=== PATIENT | female | born 1995 | race Caucasian/White ===

== ENCOUNTER → 2018-03-28 18:13 | Outpatient (CLI) | payer OTHER, MEDICAID, SELFPAY ==
[2018-03-28 20:10] LABS: Urine N gonorrhoeae NOT DETECTED
[2018-03-28 20:16] LABS: Urine Chlamydia NOT DETECTED
== END ==
PROVIDERS: Family Provider Family Medicine; PCP Family Medicine; Visit Provider Physician Assistant
DX: R10.2 Pelvic and perineal pain (principal)
CPT/HCPCS: 87210; 87491; 87591

== ENCOUNTER → 2018-04-11 21:09 | Outpatient (CLI) | payer OTHER, MEDICAID, SELFPAY | PROVIDERS: Family Provider Family Medicine; PCP Family Medicine; Visit Provider Physician Assistant | DX: N89.8 Other specified noninflammatory disorders of vagina (principal) | CPT/HCPCS: 87210 ==

== ENCOUNTER 2018-06-14 13:00 | Outpatient (RCR) | payer OTHER, MEDICAID, SELFPAY ==
--- NOTE | 2018-05-24 16:05 | PT.OTN ---
Current Diagnoses Other chronic pain (05/24/18) Lumbago with sciatica, right side (05/24/18) Lumbago with sciatica, left side (05/24/18) Physical Therapy Treatment Note PT-OP-A Visit Information Start: 05/24/18 16:06 Freq: Status: Active Protocol: Document 05/24/18 16:06 EA (Rec: 05/24/18 16:54 EA [id number]) Out-Patient Physical Therapy Visit Information Visit Information Visit Type Initial Evaluation Visit Start Time 15:15 Visit Stop Time 15:55 Total Visit Minutes 40 Visit Number 1 Evaluation Information Evaluation Date 05/24/18 PT-OP-B Current Condition Start: 05/24/18 16:06 Freq: Status: Active Protocol: Document 05/24/18 16:06 EA (Rec: 05/24/18 16:54 EA [id number]) Current Condition History of Current Condition Onset Date More than 5 years Current Complaints Localized low back pain History of Current Condition Present condition has been chornic for more than 5 years with no significant past medical history or injury. Pt had multiple treatment from chiropractor to physical therapist 3 years ago with temporarily relief. Pt reports MRI performed 4 years ago with result of disc bulge with unrecalled lumbar level. Pt is currently taking different pain medication with temporary relief; she reports that PT 3 years ago helps her mobility but not the pain. She denies any constipation or barcterial infection. Prior Treatments and Tests Chiropractor, PT, MRI performef more than 3 years ago. Future Testing and Treatments Planned None identified Treatment Goals Patient/Caregiver Goals Patient would like to increased core strengthe; states she believes if her core strength improves it will improve her back. Prior Functional Status Baseline Function- ADL's Independent Baseline Function- Mobility Independent Baseline Function- Gait Indep but requires frequent rest with long distance Baseline Function- Work/School Patient did comment about previous work Baseline Function- Recreation/Hobbies None at this time Current Functional Impairments (Reported) Functional Limitations- ADL's Independent, with difficulty in al ADL that requires standing and lifting more than 15 mins Functional Limitations- Mobility/Gait Indep that requires frequent rests with long distance mobility Functional Limitations- Work/School Not currently working Functional Limitations- Recreation/ Unable at this time. Hobbies PT-OP-C Subjective Start: 05/24/18 16:06 Freq: Status: Active Protocol: Document 05/24/18 16:06 EA (Rec: 05/24/18 16:54 EA [id number]) OP-PT Subjective Patient Comments Patient Comments Pt would like to increase core strength and low back stability. Patient Reported Progress Same OP-PT Pain Assessment Location Bilateral Lower Back Pain Location Details Par[place]umbars Intensity 5 Scale Used Numeric (1 - 10) Description Tender Tightness Frequency Intermittent Pain Aggravating Factors Position Changing Position ADL's Activity Exercise Standing Sitting Walking Lifting Pain Alleviating Factors Heat Home Pain Medication Use Pain Medications Used Yes PT-OP-G Mobility & Gait Start: 05/24/18 16:06 Freq: Status: Active Protocol: Document 05/24/18 16:06 EA (Rec: 05/24/18 16:54 EA [id number]) OP Gait Assessment Gait Gait Assistance Required: Independent Distance (Feet) 100 Able to Maintain Weight Bearing Status Yes During Gait Assistive Devices Assistive Device None Gait Deviations General Gait Pattern Within Normal Limits Comments Gait Comments No gait deviation noted PT-OP-J Posture/Palpation/Skin Start: 05/24/18 16:06 Freq: Status: Active Protocol: Document 05/24/18 16:06 EA (Rec: 05/24/18 16:54 EA [id number]) Posture Evaluation Position Standing Evaluation View post/lat Head/C-Spine Posture Neutral Position Pelvis Posture (R) Iliac Crest Superior Hip Posture (L) Externally Rotated Palpation Assessment Location One Palpation Location Paralumbars, itespinous ligament, QL Palpation Findings Soft Tissue Tightness Tenderness PT-OP-K Range of Motion Start: 05/24/18 16:06 Freq: Status: Active Protocol: Document 05/24/18 16:06 EA (Rec: 05/24/18 16:54 EA [id number]) Lumbar Spine Range of Motion Lumbar Spine Active Percentage Testing Position Standing Flexion 55 Extension 20 Rotation Left 45 Rotation Right 45 Lateral Flexion Left 30 Lateral Flexion Right 30 ROM Limitations Soft Tissue Tightness Pain PT-OP-L Special Tests Start: 05/24/18 16:06 Freq: Status: Active Protocol: Document 05/24/18 16:06 EA (Rec: 05/24/18 16:54 EA [id number]) Special Tests Lumbar Spine Special Tests Other- 1 Test Results - Gaenslens test Vertical Spine Loading Test Results - Prone Instability Test Test Results + Straight Leg Raise Test Results - PT-OP-Q Treatments Start: 05/24/18 16:06 Freq: Status: Active Protocol: Document 05/24/18 16:06 EA (Rec: 05/24/18 16:54 EA [id number]) Therapeutic Exercises Supine Exercises 3 Supine Exercise Name SKTC Side bilateral Reps/Minutes x15SH x 2 reps 2 Supine Exercise Name Wall squat with PPT Side bilateral Reps/Minutes x 10 reps 1 Supine Exercise Name PPT Side bilateral Reps/Minutes x 5SH x 5 reps Self-Care/Home Management Treatment Education Patient Education Body Mechanics Home Exercise Program Pain Management Posture PT-OP-T Assessment and Plan Start: 05/24/18 16:06 Freq: Status: Active Protocol: Document 05/24/18 16:06 EA (Rec: 05/24/18 16:54 EA [id number]) Physical Therapy Assessment Rehab Potential Rehabilitation Potential Good Evaluation Complexity Number of Personal Factors/Comorbidities 1-2 Number of Body Systems Impaired 1-2 Clinical Presentation at Evaluation Evolving Impairments Impairments Activity Tolerance Pain Posture ROM Soft Tissue Mobility Goals Four Impairment Impaired ambulation tolerance Press Worker Helper Goal (LTG) Patient will ambulate more than 15 mins with increase of low back symptoms LTG Duration 4 wks Three Impairment No HEP in place Press Worker Helper Goal (LTG) Patient will be independent in all HEP with safety. LTG Duration 4 wks Two Impairment Impaired lifting mechanics and ability Press Worker Helper Goal (LTG) Patient will demonstrate safe lifting mechanics with ability to lift more than 15 lbs LTG Duration 4 wks One Impairment Impaired standing tolerance Press Worker Helper Goal (LTG) Patient will stand more than 30 mins without increase of back symptoms LTG Duration 4 wks Assessment Summary Assessment Pleasant 22 y/o F patient with a referring diagnosis of low back pain. Today patient exhibits signs and symptoms consistent with lumbar soft tissue strain with no radiculopathy. Lumbar ROM reveals extension is limited more than side bending than bending forward. Posture reveals slight increased of lumbar lordosis with no ability to PPT. MMT to lumbar area reveals weak abdominal, oblique, and side flexors. Special test reveals positive to right SI joint dysfunction, and posterior quadrant test with no radiculo lesa. Due to above body dysfunction, patient is limited to standing activities that is supposed to be normal at her age. Patient will benefit with skilled PT to address the aforementioned issues. Physical Therapy Plan Frequency and Duration Frequency of Treatment 2x/Week Duration of Treatment 8 wks Plan of Care Start Date 05/24/18 Plan of Care End Date 07/19/18 Therapeutic Interventions Therapeutic Interventions Home Exercise Program Joint Mobilizations Manual Therapy Patient/Caregiver Education Self-Care/Home Management Soft Tissue Mobilization Taping Therapeutic Exercises Modalities Cold Pack/Ice Massage Electric Stimulation Hot Packs Traction- Mechanical Ultrasound Next Visit Focus/Plan Next Note Type Treatment Note Next Visit Plan Provide HEP images; therex to core, hamstring stretch, modalities for pain
--- NOTE | 2018-05-24 16:10 | PT.OIE ---
Current Diagnoses Other chronic pain (05/24/18) Lumbago with sciatica, right side (05/24/18) Lumbago with sciatica, left side (05/24/18) Past Medical History (Last Reviewed 11/24/17 @ 13:27 by Fidel Valero MD) ADHD (attention deficit hyperactivity disorder) (Chronic 2003) Restless leg syndrome (Chronic 2007) Chronic back pain (Chronic) Uncomplicated opioid dependence (Chronic) Onychomycosis (Chronic 10/31/15) Gluten enteropathy (Chronic) Herpes (Chronic) Kidney stones (Resolved 2013) Pituitary adenoma (Resolved) Past Surgical History (Last Reviewed 10/28/17 @ 16:12 by Fidel Valero MD) Status post cholecystectomy History of repair of hiatal hernia Provider Visit Care Team Role Provider Type Fidel Valero MD Attending Provider Non-Staff Family Provider Primary Care Provider Specialty: Family Practice Address: [address] [place] [address], [facility] [address], [place], [address] Email: Physical Therapy Initial Evaluation PT-OP-A Visit Information Start: 05/24/18 16:06 Freq: Status: Active Protocol: Document 05/24/18 16:06 EA (Rec: 05/24/18 16:54 EA [id number]) Out-Patient Physical Therapy Visit Information Visit Information Visit Type Initial Evaluation Visit Start Time 15:15 Visit Stop Time 15:55 Total Visit Minutes 40 Visit Number 1 Evaluation Information Evaluation Date 05/24/18 PT-OP-B Current Condition Start: 05/24/18 16:06 Freq: Status: Active Protocol: Document 05/24/18 16:06 EA (Rec: 05/24/18 16:54 EA [id number]) Current Condition History of Current Condition Onset Date More than 5 years Current Complaints Localized low back pain History of Current Condition Present condition has been chronic for more than 5 years with no significant past medical history or injury. Pt had multiple treatment from chiropractor to physical therapist 3 years ago with temporarily relief. Pt reports MRI performed 4 years ago with result of disc bulge with un recalled lumbar level. Pt is currently taking different pain medication with temporary relief; she reports that PT 3 years ago helps her mobility but not the pain. She denies any constipation or bacterial infection. Prior Treatments and Tests Chiropractor, PT, MRI performef more than 3 years ago. Future Testing and Treatments Planned None identified Treatment Goals Patient/Caregiver Goals Patient would like to increased core strengthe; states she believes if her core strength improves it will improve her back. Prior Functional Status Baseline Function- ADL's Independent Baseline Function- Mobility Independent Baseline Function- Gait Indep but requires frequent rest with long distance Baseline Function- Work/School Patient did comment about previous work Baseline Function- Recreation/Hobbies None at this time Current Functional Impairments (Reported) Functional Limitations- ADL's Independent, with difficulty in all ADL that requires standing and lifting more than 15 mins Functional Limitations- Mobility/Gait Indep that requires frequent rests with long distance mobility Functional Limitations- Work/School Not currently working Functional Limitations- Recreation/ Unable at this time. Hobbies PT-OP-C Subjective Start: 05/24/18 16:06 Freq: Status: Active Protocol: Document 05/24/18 16:06 EA (Rec: 05/24/18 16:54 EA [id number]) OP-PT Subjective Patient Comments Patient Comments Pt would like to increase core strength and low back stability. Patient Reported Progress Same OP-PT Pain Assessment Location Bilateral Lower Back Pain Location Details [place]umbars Intensity 5 Scale Used Numeric (1 - 10) Description Tender Tightness Frequency Intermittent Pain Aggravating Factors Position Changing Position ADL's Activity Exercise Standing Sitting Walking Lifting Pain Alleviating Factors Heat Home Pain Medication Use Pain Medications Used Yes PT-OP-G Mobility & Gait Start: 05/24/18 16:06 Freq: Status: Active Protocol: Document 05/24/18 16:06 EA (Rec: 05/24/18 16:54 EA [id number]) OP Gait Assessment Gait Gait Assistance Required: Independent Distance (Feet) 100 Able to Maintain Weight Bearing Status Yes During Gait Assistive Devices Assistive Device None Gait Deviations General Gait Pattern Within Normal Limits Comments Gait Comments No gait deviation noted PT-OP-J Posture/Palpation/Skin Start: 05/24/18 16:06 Freq: Status: Active Protocol: Document 05/24/18 16:06 EA (Rec: 05/24/18 16:54 EA [id number]) Posture Evaluation Position Standing Evaluation View post/lat Head/C-Spine Posture Neutral Position Pelvis Posture (R) Iliac Crest Superior Hip Posture (L) Externally Rotated Palpation Assessment Location One Palpation Location Paralumbars, itespinous ligament, QL Palpation Findings Soft Tissue Tightness Tenderness PT-OP-K Range of Motion Start: 05/24/18 16:06 Freq: Status: Active Protocol: Document 05/24/18 16:06 EA (Rec: 05/24/18 16:54 EA [id number]) Lumbar Spine Range of Motion Lumbar Spine Active Percentage Testing Position Standing Flexion 55 Extension 20 Rotation Left 45 Rotation Right 45 Lateral Flexion Left 30 Lateral Flexion Right 30 ROM Limitations Soft Tissue Tightness Pain PT-OP-L Special Tests Start: 05/24/18 16:06 Freq: Status: Active Protocol: Document 05/24/18 16:06 EA (Rec: 05/24/18 16:54 EA [id number]) Special Tests Lumbar Spine Special Tests Other- 1 Test Results - Gaenslens test Vertical Spine Loading Test Results - Prone Instability Test Test Results + Straight Leg Raise Test Results - PT-OP-Q Treatments Start: 05/24/18 16:06 Freq: Status: Active Protocol: Document 05/24/18 16:06 EA (Rec: 05/24/18 16:54 EA [id number]) Therapeutic Exercises Supine Exercises 3 Supine Exercise Name SKTC Side bilateral Reps/Minutes x15SH x 2 reps 2 Supine Exercise Name Wall squat with PPT Side bilateral Reps/Minutes x 10 reps 1 Supine Exercise Name PPT Side bilateral Reps/Minutes x 5SH x 5 reps Self-Care/Home Management Treatment Education Patient Education Body Mechanics Home Exercise Program Pain Management Posture PT-OP-T Assessment and Plan Start: 05/24/18 16:06 Freq: Status: Active Protocol: Document 05/24/18 16:06 EA (Rec: 05/24/18 16:54 EA [id number]) Physical Therapy Assessment Rehab Potential Rehabilitation Potential Good Evaluation Complexity Number of Personal Factors/Comorbidities 1-2 Number of Body Systems Impaired 1-2 Clinical Presentation at Evaluation Evolving Impairments Impairments Activity Tolerance Pain Posture ROM Soft Tissue Mobility Goals Four Impairment Impaired ambulation tolerance Assisted Goal (LTG) Patient will ambulate more than 15 mins with increase of low back symptoms LTG Duration 4 wks Three Impairment No HEP in place Tailor Helper Goal (LTG) Patient will be independent in all HEP with safety. LTG Duration 4 wks Two Impairment Impaired lifting mechanics and ability Tailor Helper Goal (LTG) Patient will demonstrate safe lifting mechanics with ability to lift more than 15 lbs LTG Duration 4 wks One Impairment Impaired standing tolerance Assisted Goal (LTG) Patient will stand more than 30 mins without increase of back symptoms LTG Duration 4 wks Assessment Summary Assessment Pleasant 22 y/o F patient with a referring diagnosis of low back pain. Today patient exhibits signs and symptoms consistent with lumbar soft tissue strain with no radiculopathy. Lumbar ROM reveals extension is limited more than side bending than bending forward. Posture reveals slight increased of lumbar lordosis with no ability to PPT. MMT to lumbar area reveals weak abdominal, oblique, and side flexors. Special test reveals positive to right SI joint dysfunction, and posterior quadrant test with no radiculopathy. Due to above body dysfunction, patient is limited to standing activities that is supposed to be normal at her age. Patient will benefit with skilled PT to address the aforementioned issues. Physical Therapy Plan Frequency and Duration Frequency of Treatment 2x/Week Duration of Treatment 8 wks Plan of Care Start Date 05/24/18 Plan of Care End Date 07/19/18 Therapeutic Interventions Therapeutic Interventions Home Exercise Program Joint Mobilizations Manual Therapy Patient/Caregiver Education Self-Care/Home Management Soft Tissue Mobilization Taping Therapeutic Exercises Modalities Cold Pack/Ice Massage Electric Stimulation Hot Packs Traction- Mechanical Ultrasound Next Visit Focus/Plan Next Note Type Treatment Note Next Visit Plan Provide HEP images; therex to core, hamstring stretch, modalities for pain
--- NOTE | 2018-05-24 16:10 | PT.OPPOC ---
Current Diagnoses Other chronic pain (05/24/18) Lumbago with sciatica, right side (05/24/18) Lumbago with sciatica, left side (05/24/18) Provider Visit Care Team Role Provider Type Fidel Valero MD Attending Provider Non-Staff Family Provider Primary Care Provider Specialty: Family Practice Address: [address] [place] [address], [address], [place], [address] Email: Plan Of Care PT-OP-T Assessment and Plan Start: 05/24/18 16:06 Freq: Status: Active Protocol: Document 05/24/18 16:06 JOSIE (Rec: 05/24/18 16:54 EA [id number]) Physical Therapy Assessment Rehab Potential Rehabilitation Potential Good Evaluation Complexity Number of Personal Factors/Comorbidities 1-2 Number of Body Systems Impaired 1-2 Clinical Presentation at Evaluation Evolving Impairments Impairments Activity Tolerance Pain Posture ROM Soft Tissue Mobility Goals Four Impairment Impaired ambulation tolerance Intermediate Goal (LTG) Patient will ambulate more than 15 mins with increase of low back symptoms LTG Duration 4 wks Three Impairment No HEP in place Intermediate Goal (LTG) Patient will be independent in all HEP with safety. LTG Duration 4 wks Two Impairment Impaired lifting mechanics and ability Datastage Developer Goal (LTG) Patient will demonstrate safe lifting mechanics with ability to lift more than 15 lbs LTG Duration 4 wks One Impairment Impaired standing tolerance Datastage Developer Goal (LTG) Patient will stand more than 30 mins without increase of back symptoms LTG Duration 4 wks Assessment Summary Assessment Pleasant 22 y/o F patient with a referring diagnosis of low back pain. Today patient exhibits signs and symptoms consistent with lumbar soft tissue strain with no radiculopathy. Lumbar ROM reveals extension is limited more than side bending than bending forward. Posture reveals slight increased of lumbar lordosis with no ability to PPT. MMT to lumbar area reveals weak abdominal, oblique, and side flexors. Special test reveals positive to right SI joint dysfunction, and posterior quadrant test with no radiculo lesa. Due to above body dysfunction, patient is limited to standing activities that is supposed to be normal at her age. Patient will benefit with skilled PT to address the aforementioned issues. Physical Therapy Plan Frequency and Duration Frequency of Treatment 2x/Week Duration of Treatment 8 wks Plan of Care Start Date 05/24/18 Plan of Care End Date 07/19/18 Therapeutic Interventions Therapeutic Interventions Home Exercise Program Joint Mobilizations Manual Therapy Patient/Caregiver Education Self-Care/Home Management Soft Tissue Mobilization Taping Therapeutic Exercises Modalities Cold Pack/Ice Massage Electric Stimulation Hot Packs Traction- Mechanical Ultrasound Next Visit Focus/Plan Next Note Type Treatment Note Next Visit Plan Provide HEP images; therex to core, hamstring stretch, modalities for pain Plan of Care Dates Plan of Care Start Date 05/24/18 Plan of Care End Date 07/19/18 Please Sign and Return: I have reviewed this Plan of Care and certify that the skilled therapy services above are required to meet the patient?s needs. Physician Signature Date Printed Name and Credentials Clinical Instructor Signature Printed Name and Credentials
--- NOTE | 2018-05-26 14:33 | PT.OTN ---
Current Diagnoses Other chronic pain (05/26/18) Lumbago with sciatica, right side (05/26/18) Lumbago with sciatica, left side (05/26/18) Physical Therapy Treatment Note PT-OP-A Visit Information Start: 05/24/18 16:06 Freq: Status: Active Protocol: Document 05/26/18 13:37 EA (Rec: 05/26/18 13:45 EA [id number]) Out-Patient Physical Therapy Visit Information Visit Information Visit Type Treatment Note Visit Start Time 12:15 Visit Stop Time 13:08 Total Visit Minutes 53 Visit Number 2 PT-OP-B Current Condition Start: 05/24/18 16:06 Freq: Status: Active Protocol: Document 05/24/18 16:06 EA (Rec: 05/24/18 16:54 EA [id number]) Current Condition History of Current Condition Onset Date More than 5 years Current Complaints Localized low back pain History of Current Condition Present condition has been chornic for more than 5 years with no significant past medical history or injury. Pt had multiple treatment from chiropractor to physical therapist 3 years ago with temporarily relief. Pt reports MRI performed 4 years ago with result of disc bulge with unrecalled lumbar level. Pt is currently taking different pain medication with temporary relief; she reports that PT 3 years ago helps her mobility but not the pain. She denies any constipation or barcterial infection. Prior Treatments and Tests Chiropractor, PT, MRI performef more than 3 years ago. Future Testing and Treatments Planned None identified Treatment Goals Patient/Caregiver Goals Patient would like to increased core strengthe; states she believes if her core strength improves it will improve her back. Prior Functional Status Baseline Function- ADL's Independent Baseline Function- Mobility Independent Baseline Function- Gait Indep but requires frequent rest with long distance Baseline Function- Work/School Patient did comment about previous work Baseline Function- Recreation/Hobbies None at this time Current Functional Impairments (Reported) Functional Limitations- ADL's Independent, with difficulty in al ADL that requires standing and lifting more than 15 mins Functional Limitations- Mobility/Gait Indep that requires frequent rests with long distance mobility Functional Limitations- Work/School Not currently working Functional Limitations- Recreation/ Unable at this time. Hobbies PT-OP-C Subjective Start: 05/24/18 16:06 Freq: Status: Active Protocol: Document 05/26/18 13:37 EA (Rec: 05/26/18 13:45 EA [id number]) OP-PT Subjective Patient Comments Patient Comments Pt reports low back still hurts; states still have difficulty with HEP. PT-OP-G Mobility & Gait Start: 05/24/18 16:06 Freq: Status: Active Protocol: Document 05/24/18 16:06 EA (Rec: 05/24/18 16:54 EA [id number]) OP Gait Assessment Gait Gait Assistance Required: Independent Distance (Feet) 100 Able to Maintain Weight Bearing Status Yes During Gait Assistive Devices Assistive Device None Gait Deviations General Gait Pattern Within Normal Limits Comments Gait Comments No gait deviation noted PT-OP-J Posture/Palpation/Skin Start: 05/24/18 16:06 Freq: Status: Active Protocol: Document 05/24/18 16:06 EA (Rec: 05/24/18 16:54 EA [id number]) Posture Evaluation Position Standing Evaluation View post/lat Head/C-Spine Posture Neutral Position Pelvis Posture (R) Iliac Crest Superior Hip Posture (L) Externally Rotated Palpation Assessment Location One Palpation Location Paralumbars, itespinous ligament, QL Palpation Findings Soft Tissue Tightness Tenderness PT-OP-K Range of Motion Start: 05/24/18 16:06 Freq: Status: Active Protocol: Document 05/24/18 16:06 EA (Rec: 05/24/18 16:54 EA [id number]) Lumbar Spine Range of Motion Lumbar Spine Active Percentage Testing Position Standing Flexion 55 Extension 20 Rotation Left 45 Rotation Right 45 Lateral Flexion Left 30 Lateral Flexion Right 30 ROM Limitations Soft Tissue Tightness Pain PT-OP-L Special Tests Start: 05/24/18 16:06 Freq: Status: Active Protocol: Document 05/24/18 16:06 EA (Rec: 05/24/18 16:54 EA [id number]) Special Tests Lumbar Spine Special Tests Other- 1 Test Results - Gaenslens test Vertical Spine Loading Test Results - Prone Instability Test Test Results + Straight Leg Raise Test Results - PT-OP-Q Treatments Start: 05/24/18 16:06 Freq: Status: Active Protocol: Document 05/26/18 13:37 EA (Rec: 05/26/18 13:45 EA [id number]) Cardio Equipment Recumbent Stepper (Sci-Fit) Duration (Minutes) 6 Resistance 2 Seat Position 12 Other warm up Therapeutic Exercises Supine Exercises 6 Supine Exercise Name SLR with PPT Reps/Minutes x 10 reps each leg. 5 Supine Exercise Name hamstring stretch Reps/Minutes x 20SH x 2 4 Supine Exercise Name Low trunk rotation Reps/Minutes x 15 reps 3 Supine Exercise Name SKTC to BKTC w/ PPT Side bilateral Reps/Minutes x15SH x 2 reps 2 Supine Exercise Name Wall squat with PPT Side bilateral Reps/Minutes x 10 reps 1 Supine Exercise Name PPT Side bilateral Reps/Minutes x 5SH x 5 reps Manual Therapy Treatment Soft Tissue Mobilization 1 Body Location paralumbars and low thoracis Mobilization Type Myofascial Release Rolling Sustained Pressure Trigger Point Release Intensity/Depth Moderate Body Position Prone Comments tobegin with effluerage PT-OP-R Modalities Start: 05/24/18 16:06 Freq: Status: Active Protocol: Document 05/26/18 13:37 EA (Rec: 05/26/18 13:45 EA [id number]) Electric Stimulation Electric Stimulation Interferential Current (IFC) Body Location Upper paralumabrs and low paratoracis. Duration (Minutes) 15 Intensity 32 Combined With Heat/Cold Hot Pack PT-OP-T Assessment and Plan Start: 05/24/18 16:06 Freq: Status: Active Protocol: Document 05/26/18 13:37 EA (Rec: 05/26/18 13:45 EA [id number]) Physical Therapy Assessment Assessment Summary Assessment Tolerated treatment well and had improved symptoms after manual. Physical Therapy Plan Next Visit Focus/Plan Next Note Type Treatment Note Next Visit Plan Provide HEP images; therex to core, hamstring stretch, modalities for pain
--- NOTE | 2018-06-14 14:45 | PT.OTN ---
Current Diagnoses Other chronic pain (06/14/18) Lumbago with sciatica, right side (06/14/18) Lumbago with sciatica, left side (06/14/18) Physical Therapy Treatment Note PT-OP-A Visit Information Start: 05/24/18 16:06 Freq: Status: Active Protocol: Document 06/14/18 13:50 EA (Rec: 06/14/18 13:57 EA [id number]) Out-Patient Physical Therapy Visit Information Visit Information Visit Type Treatment Note Visit Start Time 12:15 Visit Stop Time 13:08 Total Visit Minutes 53 Visit Number 3 PT-OP-B Current Condition Start: 05/24/18 16:06 Freq: Status: Active Protocol: Document 05/24/18 16:06 EA (Rec: 05/24/18 16:54 EA [id number]) Current Condition History of Current Condition Onset Date More than 5 years Current Complaints Localized low back pain History of Current Condition Present condition has been chornic for more than 5 years with no significant past medical history or injury. Pt had multiple treatment from chiropractor to physical therapist 3 years ago with temporarily relief. Pt reports MRI performed 4 years ago with result of disc bulge with unrecalled lumbar level. Pt is currently taking different pain medication with temporary relief; she reports that PT 3 years ago helps her mobility but not the pain. She denies any constipation or barcterial infection. Prior Treatments and Tests Chiropractor, PT, MRI performef more than 3 years ago. Future Testing and Treatments Planned None identified Treatment Goals Patient/Caregiver Goals Patient would like to increased core strengthe; states she believes if her core strength improves it will improve her back. Prior Functional Status Baseline Function- ADL's Independent Baseline Function- Mobility Independent Baseline Function- Gait Indep but requires frequent rest with long distance Baseline Function- Work/School Patient did comment about previous work Baseline Function- Recreation/Hobbies None at this time Current Functional Impairments (Reported) Functional Limitations- ADL's Independent, with difficulty in al ADL that requires standing and lifting more than 15 mins Functional Limitations- Mobility/Gait Indep that requires frequent rests with long distance mobility Functional Limitations- Work/School Not currently working Functional Limitations- Recreation/ Unable at this time. Hobbies PT-OP-C Subjective Start: 05/24/18 16:06 Freq: Status: Active Protocol: Document 06/14/18 13:50 EA (Rec: 06/14/18 13:57 EA [id number]) OP-PT Subjective Patient Comments Patient Comments Pt reports low back pain is not improving; states that even worse after sexual intercourse with her partner. Pt also noted that cold Weather increased abdominal and low back pain w/ stomach upset. Pt mentioned that she will be seeing her physician this week as her pain is not improving and that made her night unable to sleep. PT-OP-G Mobility & Gait Start: 05/24/18 16:06 Freq: Status: Active Protocol: Document 05/24/18 16:06 EA (Rec: 05/24/18 16:54 EA [id number]) OP Gait Assessment Gait Gait Assistance Required: Independent Distance (Feet) 100 Able to Maintain Weight Bearing Status Yes During Gait Assistive Devices Assistive Device None Gait Deviations General Gait Pattern Within Normal Limits Comments Gait Comments No gait deviation noted PT-OP-J Posture/Palpation/Skin Start: 05/24/18 16:06 Freq: Status: Active Protocol: Document 05/24/18 16:06 EA (Rec: 05/24/18 16:54 EA [id number]) Posture Evaluation Position Standing Evaluation View post/lat Head/C-Spine Posture Neutral Position Pelvis Posture (R) Iliac Crest Superior Hip Posture (L) Externally Rotated Palpation Assessment Location One Palpation Location Paralumbars, itespinous ligament, QL Palpation Findings Soft Tissue Tightness Tenderness PT-OP-K Range of Motion Start: 05/24/18 16:06 Freq: Status: Active Protocol: Document 05/24/18 16:06 EA (Rec: 05/24/18 16:54 EA [id number]) Lumbar Spine Range of Motion Lumbar Spine Active Percentage Testing Position Standing Flexion 55 Extension 20 Rotation Left 45 Rotation Right 45 Lateral Flexion Left 30 Lateral Flexion Right 30 ROM Limitations Soft Tissue Tightness Pain PT-OP-L Special Tests Start: 05/24/18 16:06 Freq: Status: Active Protocol: Document 05/24/18 16:06 EA (Rec: 05/24/18 16:54 EA [id number]) Special Tests Lumbar Spine Special Tests Other- 1 Test Results - Gaenslens test Vertical Spine Loading Test Results - Prone Instability Test Test Results + Straight Leg Raise Test Results - PT-OP-Q Treatments Start: 05/24/18 16:06 Freq: Status: Active Protocol: Document 04/02/19 13:50 EA (Rec: 06/14/18 13:57 EA [id number]) Cardio Equipment Recumbent Stepper (Sci-Fit) Duration (Minutes) 6 Resistance 2 Seat Position 12 Other warm up Therapeutic Exercises Supine Exercises 6 Supine Exercise Name SLR with PPT Reps/Minutes x 10 reps each leg. 5 Supine Exercise Name hamstring stretch Reps/Minutes x 20SH x 2 4 Supine Exercise Name Low trunk rotation Reps/Minutes x 15 reps 3 Supine Exercise Name SKTC to BKTC w/ PPT Side bilateral Reps/Minutes x15SH x 2 reps 2 Supine Exercise Name Wall squat with PPT Side bilateral Reps/Minutes x 10 reps 1 Supine Exercise Name PPT Side bilateral Reps/Minutes x 5SH x 5 reps Manual Therapy Treatment Soft Tissue Mobilization 1 Body Location paralumbars and low thoracis Mobilization Type Myofascial Release Rolling Sustained Pressure Trigger Point Release Intensity/Depth Moderate Body Position Prone Comments tobegin with effluerage PT-OP-R Modalities Start: 05/24/18 16:06 Freq: Status: Active Protocol: Document 06/14/18 13:50 EA (Rec: 06/14/18 13:57 EA [id number]) Electric Stimulation Electric Stimulation Interferential Current (IFC) Body Location Upper paralumabrs and low paratoracis. Duration (Minutes) 15 Intensity 32 Combined With Heat/Cold Hot Pack PT-OP-T Assessment and Plan Start: 05/24/18 16:06 Freq: Status: Active Protocol: Document 06/14/18 13:50 EA (Rec: 06/14/18 13:57 EA [id number]) Physical Therapy Assessment Assessment Summary Assessment Pt received today ambulates with no acute distress and apprehension during functional mobility and transfer. Tolerated treatment exercises with no signs of difficulty. Tender over left lateral paralumbars but improves after manual technique. Due to patient subjective complaint that pain is not improving though no atypical activities performed prior to and as well history of abdominal issues, patient may require further evaluation to rule out none musculoskeletal involvement. Patient requires re-check with her physician. Physical Therapy Plan Other Referrals/Consults Referrals/Consults Recommended re-check with physician, no progress and other issues involved. Hold Physical Therapy Reason For Hold Physican re-check
--- NOTE | 2018-10-04 12:31 | PT.OPDS ---
Current Diagnoses Other chronic pain (06/14/18) Lumbago with sciatica, right side (06/14/18) Lumbago with sciatica, left side (06/14/18) Provider Visit Care Team Role Provider Type Fidel Valero MD Attending Provider Non-Staff Family Provider Primary Care Provider Specialty: Family Practice Address: [address] [place] [address], [address], [place], [address] Email: Visit Number Visit Number 3 Discharge Summary PT-OP-B Current Condition Start: 05/24/18 16:06 Freq: Status: Active Protocol: Document 05/24/18 16:06 EA (Rec: 05/24/18 16:54 EA [id number]) Current Condition History of Current Condition Onset Date More than 5 years Current Complaints Localized low back pain History of Current Condition Present condition has been chornic for more than 5 years with no significant past medical history or injury. Pt had multiple treatment from chiropractor to physical therapist 3 years ago with temporarily relief. Pt reports MRI performed 4 years ago with result of disc bulge with unrecalled lumbar level. Pt is currently taking different pain medication with temporary relief; she reports that PT 3 years ago helps her mobility but not the pain. She denies any constipation or barcterial infection. Prior Treatments and Tests Chiropractor, PT, MRI performef more than 3 years ago. Future Testing and Treatments Planned None identified Treatment Goals Patient/Caregiver Goals Patient would like to increased core strengthe; states she believes if her core strength improves it will improve her back. Prior Functional Status Baseline Function- ADL's Independent Baseline Function- Mobility Independent Baseline Function- Gait Indep but requires frequent rest with long distance Baseline Function- Work/School Patient did comment about previous work Baseline Function- Recreation/Hobbies None at this time Current Functional Impairments (Reported) Functional Limitations- ADL's Independent, with difficulty in al ADL that requires standing and lifting more than 15 mins Functional Limitations- Mobility/Gait Indep that requires frequent rests with long distance mobility Functional Limitations- Work/School Not currently working Functional Limitations- Recreation/ Unable at this time. Hobbies PT-OP-C Subjective Start: 05/24/18 16:06 Freq: Status: Active Protocol: Document 10/04/18 12:28 EA (Rec: 10/04/18 12:31 EA [id number]) OP-PT Subjective Patient Comments Patient Comments By phone, patient reports that she is not ready come back PT today and believes it is a long process. She is agreeable to discharge today and aware to obtain doctor's referral as needed. Patient Reported Progress Same PT-OP-G Mobility & Gait Start: 05/24/18 16:06 Freq: Status: Active Protocol: Document 05/24/18 16:06 EA (Rec: 05/24/18 16:54 EA [id number]) OP Gait Assessment Gait Gait Assistance Required: Independent Distance (Feet) 100 Able to Maintain Weight Bearing Status Yes During Gait Assistive Devices Assistive Device None Gait Deviations General Gait Pattern Within Normal Limits Comments Gait Comments No gait deviation noted PT-OP-J Posture/Palpation/Skin Start: 05/24/18 16:06 Freq: Status: Active Protocol: Document 05/24/18 16:06 EA (Rec: 05/24/18 16:54 EA [id number]) Posture Evaluation Position Standing Evaluation View post/lat Head/C-Spine Posture Neutral Position Pelvis Posture (R) Iliac Crest Superior Hip Posture (L) Externally Rotated Palpation Assessment Location One Palpation Location Paralumbars, itespinous ligament, QL Palpation Findings Soft Tissue Tightness Tenderness PT-OP-K Range of Motion Start: 05/24/18 16:06 Freq: Status: Active Protocol: Document 05/24/18 16:06 EA (Rec: 05/24/18 16:54 EA [id number]) Lumbar Spine Range of Motion Lumbar Spine Active Percentage Testing Position Standing Flexion 55 Extension 20 Rotation Left 45 Rotation Right 45 Lateral Flexion Left 30 Lateral Flexion Right 30 ROM Limitations Soft Tissue Tightness Pain PT-OP-L Special Tests Start: 05/24/18 16:06 Freq: Status: Active Protocol: Document 05/24/18 16:06 EA (Rec: 05/24/18 16:54 EA [id number]) Special Tests Lumbar Spine Special Tests Other- 1 Test Results - Gaenslens test Vertical Spine Loading Test Results - Prone Instability Test Test Results + Straight Leg Raise Test Results - PT-OP-T Assessment and Plan Start: 05/24/18 16:06 Freq: Status: Active Protocol: Document 10/04/18 12:28 EA (Rec: 10/04/18 12:31 EA [id number]) Physical Therapy Assessment Assessment Summary Assessment Patient agreeable to discharge to PT today. Physical Therapy Plan Discharge Physical Therapy Discharge Reasons Patient Request Discharge Comments Not ready to comeback
== END 2018-10-06 13:11 | disposition home or self-care (01) ==
LOC: PHYS 13:00
PROVIDERS: Family Provider Family Medicine; PCP Family Medicine; Visit Provider Family Medicine
DX: M54.42 Lumbago with sciatica, left side (principal); M54.41 Lumbago with sciatica, right side; G89.29 Other chronic pain
CPT/HCPCS: 97014; 97110; 97140; 97161; 97535; G0283

== ENCOUNTER → 2019-04-19 17:43 | Outpatient (CLI) | payer OTHER, MEDICAID, SELFPAY ==
--- NOTE | 2019-04-19 | DI.MRI.S_ITS ---
PROCEDURE: MR LUMBAR SPINE WO CON INDICATIONS: LOW BACK PAIN TECHNIQUE: Noncontrast sagittal T1 spin echo and T2 fast echo, sagittal STIR, axial T1 and T2 fast spin echo through the lumbar spine. In cases with scoliosis, additional coronal T2 fast spin echo may be performed. COMPARISON: [facility], MR, L-SPINE WITHOUT CONTRAST, 09/28/2011, 11:53. [facility], MR, L-SPINE WITHOUT CONTRAST, 12/07/2012, 8:58. [facility], CR, L-SPINE MINIMUM 4 VIEWS, 03/05/2016, 13:42. [facility] [place], CR, XR LUMBAR SPINE 2 OR 3 VIEWS, 06/18/2017, 14:26. [facility], CR, XR LUMBAR SPINE WITH FLEXION EXTENSION 5 VIEWS, 02/16/2019, 17:42. FINDINGS: Image quality: Excellent. Alignment and Curvature: There is normal bony alignment. Convex left curvature of the thoracolumbar spine is stable compared to prior plain film radiographs. Bone Marrow: Marrow is of normal overall signal. No acute vertebral body compression fractures. Spinal Cord: Conus medullaris terminates at the L2 level. Visualized cord demonstrates normal signal and size. Paraspinous Soft Tissues: No paravertebral masses. L1-L2: Normal appearance. L2-L3: Normal appearance. L3-L4: Normal appearance. L4-L5: Normal appearance. L5-S1: Loss of disc signal and slight loss of disc height. Mild, diffuse disc bulge. Moderate-sized central disc protrusion. Mild narrowing of the central canal. No neural foraminal narrowing. No neural compression. IMPRESSION: 1. Mild to moderate L5-S1 degenerative disc disease. 2. Moderate-sized central L5-S1 disc protrusion. 3. Mild L5-S1 central canal narrowing. 4. No neural foraminal narrowing. 5. No neural compression. Dictated by: Genevieve Norman MD, PhD on 04/20/2019 at 10:37 Approved by: Genevieve Norman MD, PhD on 04/20/2019 at 10:41
== END ==
PROVIDERS: Family Provider Family Medicine; PCP Family Medicine; Referring Provider Orthopaedic Surgery; Visit Provider Orthopaedic Surgery
DX: M51.37 Other intervertebral disc degeneration, lumbosacral region (principal); M48.07 Spinal stenosis, lumbosacral region; M51.27 Other intervertebral disc displacement, lumbosacral region
CPT/HCPCS: 72148

== ENCOUNTER → 2020-02-05 11:17 | Outpatient (CLI) | payer OTHER, MEDICAID, SELFPAY ==
[2020-02-05 12:13] LABS: COVID19 -Nasal RAPID Negative (Negative)
== END ==
PROVIDERS: Family Provider Family Medicine; PCP Family Medicine; Visit Provider Physician Assistant
DX: Z11.59 Encounter for screening for other viral diseases (principal)
CPT/HCPCS: 87635

== ENCOUNTER 2020-02-06 15:08 | Outpatient (CLI) | payer OTHER, MEDICAID, SELFPAY ==
--- NOTE | 2020-02-06 16:00 | PC.NURSE ---
Pt into pre/post room, vitals taken- temp 98.3 BP 136/78, HR 140, RR 22, Sats 97%. Pain 5/10. Pt anxious and teary upon admission. Verbalized being scared of procedure and its risks. CBD, percocet and 10mg PO Valium onboard. Haulted admission process for pt report of UTI. Dr Kearney at patient side to discuss antibiotics and UTI report. Pt cancelled procedure. No interventions conducted.
== END 2020-02-06 16:00 | disposition left against medical advice (07) ==
LOC: RAD 15:09
PROVIDERS: Family Provider Family Medicine; PCP Family Medicine; Referring Provider Physical Medicine & Rehabilitation; Visit Provider Physical Medicine & Rehabilitation
DX: M51.27 Other intervertebral disc displacement, lumbosacral region (principal); Z53.9 Procedure and treatment not carried out, unspecified reason
CPT/HCPCS: J0702; J1100; J2250; J3010

== ENCOUNTER 2020-05-23 14:08 | Emergency (ER) | payer OTHER, MEDICAID, SELFPAY ==
[2020-05-23 14:21] VITALS: BP 135/83; PULSE 97; RESP 16; TEMP 36.6; O2SAT 98; BMI 22.3
--- NOTE | 2020-05-23 14:42 | DI.CT.S_ITS ---
PROCEDURE: CT HEAD/BRAIN WO CON INDICATIONS: Trauma TECHNIQUE: Noncontrast 4.5 mm thick angled axial sections acquired from the foramen magnum to the vertex, with coronal and sagittal reformats. For radiation dose reduction, the following was used: automated exposure control, adjustment of mA and/or kV according to patient size. COMPARISON: None. FINDINGS: Image quality: Excellent. CSF spaces: Basal cisterns are patent. No extra-axial fluid collections. Ventricles are normal in size and shape. Brain: No midline shift. No intracranial masses or hemorrhage. Mcclure-white matter interface is normal. Skull and face: Calvarium and visualized facial bones are intact, without suspicious lesions. Sinuses: Visualized sinuses and mastoids are clear. IMPRESSION: No trauma found. Dictated by: Jose Sethi M.D. on 05/23/2020 at 14:37 Approved by: Jose Sethi M.D. on 05/23/2020 at 14:37
--- NOTE | 2020-05-23 14:43 | DI.CT.S_ITS ---
PROCEDURE: CT CERVICAL SPINE WO CON INDICATIONS: Trauma TECHNIQUE: Noncontrast 3 mm thick sections acquired from the skull base to the T4 level. Sagittal and coronal reformats were then constructed. For radiation dose reduction, the following was used: automated exposure control, adjustment of mA and/or kV according to patient size. COMPARISON: [facility], CT, CT HEAD/BRAIN WO CON, 05/23/2020, 14:50. FINDINGS: Image quality: Excellent. Bones: No acute fractures or dislocations. No acute compression fractures of the vertebral bodies. Craniocervical junction is intact. C1-C2 relationship is preserved. Visualized superior ribs are intact. Straightening of cervical lordosis which may be due to patient positioning and/or concurrent muscle spasms. Soft tissues: Prevertebral soft tissues are normal in thickness. No paravertebral hematomas. No apical pneumothoraces. IMPRESSION: Cervical spine without acute fracture or dislocation. Mild straightening of normal cervical lordosis likely related to positioning and/or concurrent muscle spasms. Dictated by: Jorge Moore M.D. on 05/23/2020 at 15:37 Approved by: Jorge Moore M.D. on 05/23/2020 at 15:40
--- NOTE | 2020-05-23 14:45 | DI.CT.S_ITS ---
PROCEDURE: CT CHEST ABD PEL W CON INDICATIONS: Trauma TECHNIQUE: After the administration of intravenous contrast, 5 mm thick sections acquired from the lung apices to the symphysis. 2.5 mm thick coronal and sagittal reformats were acquired. Additional 7 mm thick coronal maximum intensity projection (MIP) reformats acquired through the lungs. Optional 10-minute delayed imaging may be performed from the kidneys to the bladder. For radiation dose reduction, the following was used: automated exposure control, adjustment of mA and/or kV according to patient size. COMPARISON: None. FINDINGS: Image quality: Excellent. CHEST: Lungs: No pulmonary contusions or lacerations. No acute airspace opacities. No pneumothorax or hemothorax. Central and peripheral airways appear patent and normal in caliber. Multiple scattered bilateral pulmonary nodules measuring between 3 mm and 6 mm in size. [employer] nodule in the left lower lobe measuring 6 mm is seen on image 153, series 3 (left lower lobe) and 5 mm in the right lower lobe (image 124, series 3). No septal thickening or nodularity. Mediastinum: No mediastinal hematomas. Heart size is normal. No pericardial effusion. Thoracic aorta and pulmonary arteries demonstrate normal size and enhancement. No mediastinal or hilar adenopathy. Esophagus is normal in caliber. No hiatal hernia. Chest wall: No rib fractures. No subcutaneous emphysema. No axillary or supraclavicular adenopathy. Thyroid gland is unremarkable. ABDOMEN: Solid organs: Liver is normal in size and enhancement, without lacerations. Gallbladder is surgically absent. Biliary system is non-dilated. Pancreas enhances normally, without transection. Spleen is normal in size and enhancement, without lacerations. No adrenal hematomas. Both kidneys enhance normally, without hydronephrosis or lacerations. Peritoneum and bowel: No free fluid or air. Unenhanced bowel loops demonstrate normal wall thickness and caliber. Normal appendix. Nodes and vessels: No retroperitoneal or mesenteric adenopathy. Aorta and inferior vena cava are normal in size and enhancement. Miscellaneous: No ventral hernias. PELVIS: Genitourinary: Urinary bladder wall thickness is normal for degree of distension. Miscellaneous: No inguinal hernias or adenopathy. Bones: Pelvic ring and hip joints appear intact. No acute vertebral compression fractures. Mild degenerative changes of the lower lumbar spine at L5-S1. IMPRESSION: 1. CT chest, abdomen, and pelvis without acute traumatic injuries to the solid and hollow organs. No secondary findings to suggest vascular injury of the aorta. 2. Multiple scattered bilateral pulmonary nodules measuring between 3 mm and 6 mm in size. Recommend follow-up chest CT in 3-6 months to document stability. 3. Status post cholecystectomy. 4. Normal appendix. 5. No acute osseous abnormalities. Mild L5-S1 spondylosis. Dictated by: Jorge Moore M.D. on 05/23/2020 at 15:46 Approved by: Jorge Moore M.D. on 05/23/2020 at 15:53
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
[2020-05-23 14:52] LABS: Add Manual Diff / Slide Review NO; Basophils Absolute Auto 0 /uL (0-100); Basophils Percent Auto 0.6 % (0-2); Eosinophils Absolute Auto 100 /uL (0-450); Eosinophils Percent Auto 1.7 % (2-4); Hematocrit 41.1 % (36-46); Hemoglobin 13.7 g/dL (12.0-16.0); Lymphocytes Absolute Auto 1500 /uL (1100-4500); Lymphocytes Percent Auto 21.4 % (25-40); Mean Corpuscular HGB Conc 33.3 % (30-36); Mean Corpuscular Hemoglobin 29.5 PG (26-34); Mean Corpuscular Volume 88.8 fL (80-100); Monocytes Absolute Auto 500 /uL (0-900); Monocytes Percent Auto 7.2 % (3-14); Neutrophils Absolute Auto 5000 /uL (1500-7000); Neutrophils Percent Auto 69.1 % (50-75); Platelet Count 289 X10^3/uL (150-400); Red Blood Cell Count 4.62 X10^6/uL (4.0-5.2); Red Cell Distribution Width 12.4 % (11.6-14.8); White Blood Cell Count 7.2 X10^3/uL (4.5-11.0)
[2020-05-23 14:59] LABS: Alanine Aminotransferase 58 IU/L (<35); Albumin 4.4 g/dL (3.5-5.0); Albumin Globulin Ratio 1.4 (1.0-2.8); Alkaline Phosphatase 61 U/L (38-126); Aspartate Aminotransferase 112 IU/L (14-36); Bilirubin Total 0.5 mg/dL (0.2-1.3); Blood Urea Nitrogen 13 mg/dL (7-17); Calcium 9.5 mg/dL (8.4-10.2); Carbon Dioxide 28 mmol/L (22-32); Chloride 105 mmol/L (98-107); Estimated Glomerular Filt Rate > 60.0 mL/min (>60); Globulin 3.2 g/dL (1.7-4.1); Glucose 106 mg/dL (70-100); HEMOLYSIS < 15 (0-50); Lipase 120 U/L (23-300); Potassium 4.2 mmol/L (3.4-5.1); Sodium 139 mmol/L (137-145); Total Protein 7.6 g/dL (6.3-8.2)
[2020-05-23 15:05] LABS: Creatine Kinase 2513 U/L (30-135)
[2020-05-23 15:07] LABS: Ethanol (ETOH) < 10 mg/dL
[2020-05-23 15:10] LABS: Troponin I < 0.012 ng/mL (0.01-0.034)
[2020-05-23 15:17] LABS: CKMB % Relative Index 0.2 % (1.5-5.0)
[2020-05-23 15:24] LABS: Bacteria Urine None Seen; RBC Urine None Seen (0-5/HPF)
[2020-05-23 15:38] LABS: Amorphous Sediment Urine 1+; Mucus Urine 1+ (Negative); Squamous Epithelial Cell Urine 1-5 /HPF (0-5/HPF); WBC Urine 1-5/HPF (0-5/HPF)
[2020-05-23 15:39] LABS: Culture Indicated Urine Cult Not Indicated; Ictotest Urine Negative (Negative)
[2020-05-23] MEDS: SODIUM CHLORIDE 0.9% 1,000 ML 1000 ML IV ×2 (15:42→16:47)
[2020-05-23] MEDS: CYCLOBENZAPRINE 10 MG TABLET PO (16:46)
[2020-05-23] MEDS: OXYCODONE/ACETAMINOPHEN 5/325 TABLET 1 TAB PO (16:47)
[2020-05-23] MEDS: KETOROLAC 60 MG/2 ML VIAL 15 MG IV (16:47)
[2020-05-23 17:16] LABS: Creatine Kinase 2183 U/L (30-135)
[2020-05-23 17:31] VITALS: BP 116/65; PULSE 85; RESP 18; O2SAT 98
[2020-05-23 18:22] VITALS: BP 116/65; PULSE 87; RESP 23; O2SAT 98
== END 2020-05-23 18:28 | disposition home or self-care (01) ==
PROVIDERS: Emergency Provider Student in an Organized Health Care Education/Training Program; Family Provider Family Medicine; PCP Family Medicine
DX: S70.02XA Contusion of left hip, initial encounter (principal); M25.552 Pain in left hip; R51.9 Headache, unspecified; R10.84 Generalized abdominal pain; S09.90XA Unspecified injury of head, initial encounter; R74.8 Abnormal levels of other serum enzymes; V86.56XA Driver of dirt bike or motor/cross bike injured in nontraffic accident, initial encounter
CPT/HCPCS: 36415; 70450; 71260; 72125; 74177; 80053; 80320; 81003; 81015; 81025; 82550; 82553; 83690; 84484; 85025; 85610; 86850; 86900; 86901; 93005; 96361; 96374; 99284; 99285; J1885; Q9967

== ENCOUNTER 2020-12-26 14:30 | Outpatient (RCR) | payer OTHER, MEDICAID, SELFPAY ==
--- NOTE | 2020-11-04 16:19 | PT.OIE ---
Current Diagnoses Other chronic pain (11/04/20) Lumbago with sciatica, right side (11/04/20) Lumbago with sciatica, left side (11/04/20) Past Medical History (Last Reviewed 05/23/20 @ 20:41 by Liane Low PA-C) ADHD (attention deficit hyperactivity disorder) (2003) Chronic back pain Gluten enteropathy Herniated nucleus pulposus, L5-S1 Herpes Kidney stones (2013) Onychomycosis (10/31/15) Pituitary adenoma Restless leg syndrome (2007) Uncomplicated opioid dependence Past Surgical History (Last Reviewed 05/23/20 @ 20:41 by Liane Low PA-C) History of repair of hiatal hernia Status post cholecystectomy Visit Care Team Role Provider Type Fidel Valero MD Attending Provider Non-Staff Family Provider Primary Care Provider Referring Provider Specialty: Family Practice Address: [address] [place] [address], [facility] [address], [place], [address] Email: Physical Therapy Initial Evaluation PT-OP-A Visit Information Start: 11/04/20 15:36 Freq: Status: Active Protocol: Document 11/04/20 15:37 HH (Rec: 11/04/20 16:18 [email or web address]) Out-Patient Physical Therapy Visit Information Visit Information Visit Type Initial Evaluation Visit Start Time 13:45 Visit Stop Time 13:42 Total Visit Minutes 53 Visit Number 04/07 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 She stated there's no known injury and her pain primarily located at center of lumbar spine and radiates laterally occasionally. Denies any tingling/ numbness/ pain to lower extremity. Pain tends to get worse in any position/ activity > 20-30 mins. However , she finds bending forward tends to relieve her pain. She does have stiffness in the morning and takes approx 1-2 hours to loosen up with mostly flexion based stretches and placing heat pad at low back. Pt has had multiple courses of physical therapy, chiropractic, massage related treatment as well as had extensive medications including anti-inflammatories, narcotics, neuropathic pain moducalators as well as benzodiazepines. However, pt stated it had not been much helpful so far. She had PT in 2018 here at [facility] but was not consistent with her therex and discharged herself as she stated not ready for PT. Pt is currently unemployed and very sedentary at home in [place]. She only walks approx 30 mins / week. Prior Treatments and Tests ?04/19/19 ?L5-S1: Loss of disc signal and slight loss disc height. Mild, diffuse disc bulge. Moderate-sized central disc protrusion. Mild narrowing of the central canal. No neural foraminal narrowing. No neural compression. Pt had multiple PT, chiropractic and massage treatments and didnt help. Pt did not complete PT POC and DC herself early for her most recent PT here at [facility] in 2018. Personal Factors Other Personal Factors That May Effect ADHD Therapy/Recovery Herniated nucleus pulposus, L5 -S1 Uncomplicated opioid dependence failure of previous therapeautic treatment. PT-OP-C Subjective Start: 11/04/20 15:36 Freq: Status: Active Protocol: Document 11/04/20 15:37 (Rec: 11/04/20 16:18 [email or web address]) Patient Questionnaires Oswestry Low Back Index Oswestry Score 44 Oswestry Impairment 40 to 59% Impaired (Score 40- 59) OP-PT Pain Assessment Location LBP Pain Location Details L3-L5 Intensity 8 Scale Used Numeric (0 - 10) Description Aching,Chronic,Dull,Pressure Frequency Frequent Pain Aggravating Factors Position,ADL's,Activity, Exercise,Standing,Sitting, Walking,Lifting Pain Alleviating Factors Heat Other Pain Alleviating Factors hooklying, sidelying, PT-OP-D Balance Start: 11/04/20 15:36 Freq: Status: Active Protocol: Document 11/04/20 15:37 (Rec: 11/04/20 16:18 [email or web address]) Balance Tests Single Limb Standing Single Limb- Right 60s, less table, increase weight shift to R Single Limb- Left 60s PT-OP-F Manual Assessment Start: 11/04/20 15:36 Freq: Status: Active Protocol: Document 11/04/20 15:37 HH (Rec: 11/04/20 16:18 [email or web address]) Manual Assessments Soft Tissue Assessment Soft Tissue Mobility Assessment mild tenderness to bilateral QL and paraspinals Joint Mobility Assessment Joint Mobility Assessment hypermobile L3 with PA glide, pain reproduced in prone. PT-OP-H Neuro Start: 11/04/20 15:36 Freq: Status: Active Protocol: Document 11/04/20 15:37 HH (Rec: 11/04/20 16:18 [email or web address]) Sensation Evaluation Gross Sensation Gross Sensation WNL Deep Tendon Reflex & Clonus Assessment Deep Tendon Reflex Bilateral Patellar Deep Tendon Reflex 0 Absent Bilateral Achilles Deep Tendon Reflex 2+ Normal PT-OP-J Posture/Palpation/Skin Start: 11/04/20 15:36 Freq: Status: Active Protocol: Document 11/04/20 15:37 HH (Rec: 11/04/20 16:18 [email or web address]) Posture Evaluation Position Standing T-Spine Posture Increased Kyphosis Pelvis Posture Anteriorly Tilted Weight Distribution Weight Shifted Right PT-OP-K Range of Motion Start: 11/04/20 15:36 Freq: Status: Active Protocol: Document 11/04/20 15:37 HH (Rec: 11/04/20 16:18 [email or web address]) Lumbar Spine Range of Motion Lumbar Spine Active Degrees Testing Position Standing Comments toe touch= able to reach floor , slight T/S R rotation lateral flexion to L/R= 17 inches from floor. angulation noted at L3 level extension= shoulder at midfoot = angulation noted at L3 level with significant pain at center PT-OP-L Special Tests Start: 11/04/20 15:36 Freq: Status: Active Protocol: Document 11/04/20 15:37 HH (Rec: 11/04/20 16:18 [email or web address]) Special Tests Lumbar Spine Special Tests quadrant test Test Results R>L A-P Shearing Test Results +VE L3 Slump Test Results -ve Vertical Spine Loading Test Results will assess next visit Prone Instability Test Test Results +VE B Comments decreased pain with hip extension with gluteal focus,. Straight Leg Raise Test Results +VE B Comments repetitive SLR reproduce LBP, lack of TA engagement. PT-OP-M Strength Start: 11/04/20 15:36 Freq: Status: Active Protocol: Document 11/04/20 15:37 HH (Rec: 11/04/20 16:18 HH [email or web address]) Trunk Strength Trunk Manual Muscle Testing Core Stabilization endurance test in hooklying position, trunk flex at 45 degree and hold = 18 seconds. PT-OP-Q Treatments Start: 11/04/20 15:36 Freq: Status: Active Protocol: Document 11/04/20 15:37 HH (Rec: 11/04/20 16:18 HH [email or web address]) Self-Care/Home Management Treatment Education Patient Education Body Mechanics,Pain Management ,Posture Other Education spent approx 10 mins on explaining pt's hypermobility and lack of segmental stability at L3 level which possibly causes excessive shearing and loading during trunk movements. Explained POC and importance of trunk stability for daily activities . PT-OP-T Assessment and Plan Start: 11/04/20 15:36 Freq: Status: Active Protocol: Document 11/04/20 15:37 HH (Rec: 11/04/20 16:18 [email or web address]) Physical Therapy Assessment Rehab Potential Rehabilitation Potential Good Evaluation Complexity Number of Personal Factors/Comorbidities 1-2 Number of Body Systems Impaired 1-2 Clinical Presentation at Evaluation Stable Impairments Impairments Activity Tolerance,Balance, Functional Activities, Functional Mobility,Pain, Posture,ROM,Soft Tissue Mobility,Strength Other Concerns Barriers to Rehabilitation ADHD Herniated nucleus pulposus, L5 -S1 Uncomplicated opioid dependence failure of previous therapeautic treatment. Goals postural awareness Impairment pt presents significant APT and extend her back through WB position Short Term Goal (STG) pt will show improved awareness of her chronic anterior pelvic tilt position and able to engage posterior pelvic tilt if necessary in WB position to manage her pain. STG Duration 8 weeks trunk endurance Impairment poor core endurance, flexion test= 18 seconds Short Term Goal (STG) pt will show improved core endurance by reaching >30 degrees for flexion endurance test STG Duration 5 weeks Assisted Goal (LTG) pt will show improved core endurance by reaching >45 degrees for flexion endurance test LTG Duration 10 weeks pain Impairment significant pain with activity / prolonged position 8/10 Short Term Goal (STG) pt will be able to tolerate standing/ walking/ sitting >30 mins without pain >5/10 STG Duration 5 weeks Assisted Goal (LTG) pt will be able to tolerate standing/ walking/ sitting >30 mins without pain >3/10 LTG Duration 10 weeks [place] Impairment pt scores 44 on [place] Short Term Goal (STG) Pt will shows improved overall activity tolerance and community mobility by scoring <30 on [place] STG Duration 5 weeks Tool And Gauge Inspector Goal (LTG) Pt will shows improved overall activity tolerance and community mobility by scoring <20 on [place] LTG Duration 10 weeks Assessment Summary Assessment Hanane is a 25yo female here for her non specific chronic LBP > 10years. Pt has a series of failed therapeutic treatments including PT. chiropractic and massage therapy. Her x-ray in 2019 shows Herniated nucleus pulposus, L5-S1. 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 Flexion relieve her symptoms but significant pain/ angulation at L3 region with extension/ lateral flexion. She also presents a significant anterior pelvic tilt position which increases shear force at her L/S. I spent time educating pt in regard to her posture and treatment plan. Pt understands and is willing to be consistent and compliant to PT this time. I believe pt will benefit from a course of skilled therapy again to specifically address her postural awareness, segmental stability and overall core endurance and strength. Physical Therapy Plan Frequency and Duration Frequency of Treatment 1x/Week Duration of Treatment 10 weeks Plan of Care Start Date 11/04/20 Plan of Care End Date 01/18/21 Therapeutic Interventions Therapeutic Interventions Home Exercise Program,Joint Mobilizations,Manual Therapy, Neuromuscular Re-education, Patient/Caregiver Education, Self-Care/Home Management,Soft Tissue Mobilization,Taping, Therapeutic Activities, Therapeutic Exercises Modalities Cold Pack/Ice Massage,Electric Stimulation,Hot Packs, Infrared Therapy,Traction- Mechanical,Ultrasound Next Visit Focus/Plan Next Note Type Treatment Note Next Visit Plan retest prone instability postural awareness TA activation LTR posterior tilt bridging
--- NOTE | 2020-11-06 13:52 | PT.OTN ---
Current Diagnoses Other chronic pain (11/06/20) Lumbago with sciatica, right side (11/06/20) Lumbago with sciatica, left side (11/06/20) Physical Therapy Treatment Note PT-OP-A Visit Information Start: 11/04/20 15:36 Freq: Status: Active Protocol: Document 11/06/20 13:02 HH (Rec: 11/06/20 13:52 HH [id number]) Out-Patient Physical Therapy Visit Information Visit Information Visit Type Treatment Note Visit Start Time 13:02 Visit Stop Time 13:45 Total Visit Minutes 43 Visit Number 05/08 Number of PLANTING SUPERVISOR Visits 0 PT-OP-B Current Condition Start: 11/04/20 15:36 Freq: Status: Active Protocol: Document 11/04/20 15:37 HH (Rec: 11/04/20 16:18 HH [email or web address]) Current Condition History of Current Condition Onset Date Since 6 years old Current Complaints chronic LBP, decreased activity tolerance History of Current Condition Hanane is a 25yo female here for her chronic LBP since she was 6years old. She stated there's no known injury and her pain primarily located at center of lumbar spine and radiates laterally occasionally. Denies any tingling/ numbness/ pain to lower extremity. Pain tends to get worse in any position/ activity > 20-30 mins. However , she finds bending forward tends to relieve her pain. She does have stiffness in the morning and takes approx 1-2 hours to loosen up with mostly flexion based stretches and placing heat pad at low back. Pt has had multiple courses of physical therapy, chiropractic, massage related treatment as well as had extensive medications including anti-inflammatories, narcotics, neuropathic pain moducalators as well as benzodiazepines. However, pt stated it had not been much helpful so far. She had PT in 2018 here at [facility] but was not consistent with her therex and discharged herself as she stated not ready for PT. Pt is currently unemployed and very sedentary at home in [place]. She only walks approx 30 mins / week. Prior Treatments and Tests ?04/19/19 ?L5-S1: Loss of disc signal and slight loss disc height. Mild, diffuse disc bulge. Moderate-sized central disc protrusion. Mild narrowing of the central canal. No neural foraminal narrowing. No neural compression. Pt had multiple PT, chiropractic and massage treatments and didnt help. Pt did not complete PT POC and DC herself early for her most recent PT here at [facility] in 2018. Personal Factors Other Personal Factors That May Effect ADHD Therapy/Recovery Herniated nucleus pulposus, L5 -S1 Uncomplicated opioid dependence failure of previous therapeautic treatment. PT-OP-C Subjective Start: 11/04/20 15:36 Freq: Status: Active Protocol: Document 11/04/20 15:37 HH (Rec: 11/04/20 16:18 HH [email or web address]) Patient Questionnaires Oswestry Low Back Index Oswestry Score 44 Oswestry Impairment 40 to 59% Impaired (Score 40- 59) OP-PT Pain Assessment Location LBP Pain Location Details L3-L5 Intensity 8 Scale Used Numeric (0 - 10) Description Aching,Chronic,Dull,Pressure Frequency Frequent Pain Aggravating Factors Position,ADL's,Activity, Exercise,Standing,Sitting, Walking,Lifting Pain Alleviating Factors Heat Other Pain Alleviating Factors hooklying, sidelying, PT-OP-D Balance Start: 11/04/20 15:36 Freq: Status: Active Protocol: Document 11/04/20 15:37 HH (Rec: 11/04/20 16:18 HH [email or web address]) Balance Tests Single Limb Standing Single Limb- Right 60s, less table, increase weight shift to R Single Limb- Left 60s PT-OP-F Manual Assessment Start: 11/04/20 15:36 Freq: Status: Active Protocol: Document 11/04/20 15:37 HH (Rec: 11/04/20 16:18 [email or web address]) Manual Assessments Soft Tissue Assessment Soft Tissue Mobility Assessment mild tenderness to bilateral QL and paraspinals Joint Mobility Assessment Joint Mobility Assessment hypermobile L3 with PA glide, pain reproduced in prone. PT-OP-H Neuro Start: 11/04/20 15:36 Freq: Status: Active Protocol: Document 11/04/20 15:37 HH (Rec: 11/04/20 16:18 HH [email or web address]) Sensation Evaluation Gross Sensation Gross Sensation WNL Deep Tendon Reflex & Clonus Assessment Deep Tendon Reflex Bilateral Patellar Deep Tendon Reflex 0 Absent Bilateral Achilles Deep Tendon Reflex 2+ Normal PT-OP-J Posture/Palpation/Skin Start: 11/04/20 15:36 Freq: Status: Active Protocol: Document 11/04/20 15:37 HH (Rec: 11/04/20 16:18 [email or web address]) Posture Evaluation Position Standing T-Spine Posture Increased Kyphosis Pelvis Posture Anteriorly Tilted Weight Distribution Weight Shifted Right PT-OP-K Range of Motion Start: 11/04/20 15:36 Freq: Status: Active Protocol: Document 11/04/20 15:37 HH (Rec: 11/04/20 16:18 [email or web address]) Lumbar Spine Range of Motion Lumbar Spine Active Degrees Testing Position Standing Comments toe touch= able to reach floor , slight T/S R rotation lateral flexion to L/R= 17 inches from floor. angulation noted at L3 level extension= shoulder at midfoot = angulation noted at L3 level with significant pain at center PT-OP-L Special Tests Start: 11/04/20 15:36 Freq: Status: Active Protocol: Document 11/04/20 15:37 HH (Rec: 11/04/20 16:18 [email or web address]) Special Tests Lumbar Spine Special Tests quadrant test Test Results R>L A-P Shearing Test Results +VE L3 Slump Test Results -ve Vertical Spine Loading Test Results will assess next visit Prone Instability Test Test Results +VE B Comments decreased pain with hip extension with gluteal focus,. Straight Leg Raise Test Results +VE B Comments repetitive SLR reproduce LBP, lack of TA engagement. PT-OP-M Strength Start: 11/04/20 15:36 Freq: Status: Active Protocol: Document 11/04/20 15:37 HH (Rec: 11/04/20 16:18 [email or web address]) Trunk Strength Trunk Manual Muscle Testing Core Stabilization endurance test in hooklying position, trunk flex at 45 degree and hold = 18 seconds. PT-OP-Q Treatments Start: 11/04/20 15:36 Freq: Status: Active Protocol: Document 11/06/20 13:02 HH (Rec: 11/06/20 13:52 [email or web address]) Therapeutic Exercises Supine Exercises LTR Reps/Minutes 10 x2 Comments for HEP, cues of PPT first. PPT Reps/Minutes 10 x2 Comments cues on glute engagement bridging Reps/Minutes 10 x2 Comments for HEP, cues for PPT first TA activation Reps/Minutes 5 sec hold Comments for HEP, cues on abd brace Manual Therapy Treatment Soft Tissue Mobilization lumbar Body Location paraspinals and QL Mobilization Type Myofascial Release,Sustained Pressure,Trigger Point Release Intensity/Depth Moderate Body Position Supine PT-OP-T Assessment and Plan Start: 11/04/20 15:36 Freq: Status: Active Protocol: Document 11/06/20 13:02 (Rec: 11/06/20 13:52 [id number]) Physical Therapy Assessment Goals postural awareness Impairment pt presents significant APT and extend her back through WB position Short Term Goal (STG) pt will show improved awareness of her chronic anterior pelvic tilt position and able to engage posterior pelvic tilt if necessary in WB position to manage her pain. STG Duration 8 weeks trunk endurance Impairment poor core endurance, flexion test= 18 seconds Short Term Goal (STG) pt will show improved core endurance by reaching >30 degrees for flexion endurance test STG Duration 5 weeks Jail Goal (LTG) pt will show improved core endurance by reaching >45 degrees for flexion endurance test LTG Duration 10 weeks pain Impairment significant pain with activity / prolonged position 8/10 Short Term Goal (STG) pt will be able to tolerate standing/ walking/ sitting >30 mins without pain >5/10 STG Duration 5 weeks Jail Goal (LTG) pt will be able to tolerate standing/ walking/ sitting >30 mins without pain >3/10 LTG Duration 10 weeks Owestry Impairment pt scores 44 on Owestry Short Term Goal (STG) Pt will shows improved overall activity tolerance and community mobility by scoring <30 on Owestry STG Duration 5 weeks Jail Goal (LTG) Pt will shows improved overall activity tolerance and community mobility by scoring <20 on Owestry LTG Duration 10 weeks Assessment Summary Assessment first tx session with pt. Pt does have diffiuclty engaging TA and PPT. She needed extensive cueing visually and tactile to improve movement quality. Will review HEP with her next visit. Physical Therapy Plan Frequency and Duration Frequency of Treatment 1x/Week Duration of Treatment 10 weeks Plan of Care Start Date 11/04/20 Plan of Care End Date 01/18/21 Therapeutic Interventions Therapeutic Interventions Home Exercise Program,Joint Mobilizations,Manual Therapy, Neuromuscular Re-education, Patient/Caregiver Education, Self-Care/Home Management,Soft Tissue Mobilization,Taping, Therapeutic Activities, Therapeutic Exercises Modalities Cold Pack/Ice Massage,Electric Stimulation,Hot Packs, Infrared Therapy,Traction- Mechanical,Ultrasound Next Visit Focus/Plan Next Note Type Treatment Note Next Visit Plan retest prone instability postural awareness TA activation LTR posterior tilt bridging
--- NOTE | 2020-11-12 16:17 | PT.OTN ---
Current Diagnoses Other chronic pain (11/12/20) Lumbago with sciatica, right side (11/12/20) Lumbago with sciatica, left side (11/12/20) Physical Therapy Treatment Note PT-OP-A Visit Information Start: 11/04/20 15:36 Freq: Status: Active Protocol: Document 11/12/20 15:19 HH (Rec: 11/12/20 16:16 [id number]) Out-Patient Physical Therapy Visit Information Visit Information Visit Type Treatment Note Visit Start Time 15:18 Visit Stop Time 16:12 Total Visit Minutes 54 Visit Number 06/05 Number of ENVIRONMENTAL AIDE Visits 0 PT-OP-B Current Condition Start: 11/04/20 15:36 Freq: Status: Active Protocol: Document 11/04/20 15:37 HH (Rec: 11/04/20 16:18 [email or web address]) Current Condition History of Current Condition Onset Date Since 6 years old Current Complaints chronic LBP, decreased activity tolerance History of Current Condition Hanane is a 25yo female here for her chronic LBP since she was 6years old. She stated there's no known injury and her pain primarily located at center of lumbar spine and radiates laterally occasionally. Denies any tingling/ numbness/ pain to lower extremity. Pain tends to get worse in any position/ activity > 20-30 mins. However , she finds bending forward tends to relieve her pain. She does have stiffness in the morning and takes approx 1-2 hours to loosen up with mostly flexion based stretches and placing heat pad at low back. Pt has had multiple courses of physical therapy, chiropractic, massage related treatment as well as had extensive medications including anti-inflammatories, narcotics, neuropathic pain moducalators as well as benzodiazepines. However, pt stated it had not been much helpful so far. She had PT in 2018 here at [facility] but was not consistent with her therex and discharged herself as she stated not ready for PT. Pt is currently unemployed and very sedentary at home in [place]. She only walks approx 30 mins / week. Prior Treatments and Tests ?04/19/19 ?L5-S1: Loss of disc signal and slight loss disc height. Mild, diffuse disc bulge. Moderate-sized central disc protrusion. Mild narrowing of the central canal. No neural foraminal narrowing. No neural compression. Pt had multiple PT, chiropractic and massage treatments and didnt help. Pt did not complete PT POC and DC herself early for her most recent PT here at [facility] in 2018. Personal Factors Other Personal Factors That May Effect ADHD Therapy/Recovery Herniated nucleus pulposus, L5 -S1 Uncomplicated opioid dependence failure of previous therapeautic treatment. PT-OP-C Subjective Start: 11/04/20 15:36 Freq: Status: Active Protocol: Document 11/12/20 15:19 HH (Rec: 11/12/20 16:16 HH [id number]) OP-PT Subjective Patient Comments Patient Comments Lauren been doing all my exercises. The stretching makes me feel good Patient Reported Progress Improving PT-OP-D Balance Start: 11/04/20 15:36 Freq: Status: Active Protocol: Document 11/04/20 15:37 HH (Rec: 11/04/20 16:18 HH [email or web address]) Balance Tests Single Limb Standing Single Limb- Right 60s, less table, increase weight shift to R Single Limb- Left 60s PT-OP-F Manual Assessment Start: 11/04/20 15:36 Freq: Status: Active Protocol: Document 11/04/20 15:37 HH (Rec: 11/04/20 16:18 HH [email or web address]) Manual Assessments Soft Tissue Assessment Soft Tissue Mobility Assessment mild tenderness to bilateral QL and paraspinals Joint Mobility Assessment Joint Mobility Assessment hypermobile L3 with PA glide, pain reproduced in prone. PT-OP-H Neuro Start: 11/04/20 15:36 Freq: Status: Active Protocol: Document 11/04/20 15:37 HH (Rec: 11/04/20 16:18 HH [email or web address]) Sensation Evaluation Gross Sensation Gross Sensation WNL Deep Tendon Reflex & Clonus Assessment Deep Tendon Reflex Bilateral Patellar Deep Tendon Reflex 0 Absent Bilateral Achilles Deep Tendon Reflex 2+ Normal PT-OP-J Posture/Palpation/Skin Start: 11/04/20 15:36 Freq: Status: Active Protocol: Document 11/04/20 15:37 HH (Rec: 11/04/20 16:18 HH [email or web address]) Posture Evaluation Position Standing T-Spine Posture Increased Kyphosis Pelvis Posture Anteriorly Tilted Weight Distribution Weight Shifted Right PT-OP-K Range of Motion Start: 11/04/20 15:36 Freq: Status: Active Protocol: Document 11/04/20 15:37 HH (Rec: 11/04/20 16:18 [email or web address]) Lumbar Spine Range of Motion Lumbar Spine Active Degrees Testing Position Standing Comments toe touch= able to reach floor , slight T/S R rotation lateral flexion to L/R= 17 inches from floor. angulation noted at L3 level extension= shoulder at midfoot = angulation noted at L3 level with significant pain at center PT-OP-L Special Tests Start: 11/04/20 15:36 Freq: Status: Active Protocol: Document 11/04/20 15:37 (Rec: 11/04/20 16:18 [email or web address]) Special Tests Lumbar Spine Special Tests quadrant test Test Results R>L A-P Shearing Test Results +VE L3 Slump Test Results -ve Vertical Spine Loading Test Results will assess next visit Prone Instability Test Test Results +VE B Comments decreased pain with hip extension with gluteal focus,. Straight Leg Raise Test Results +VE B Comments repetitive SLR reproduce LBP, lack of TA engagement. PT-OP-M Strength Start: 11/04/20 15:36 Freq: Status: Active Protocol: Document 11/04/20 15:37 (Rec: 11/04/20 16:18 [email or web address]) Trunk Strength Trunk Manual Muscle Testing Core Stabilization endurance test in hooklying position, trunk flex at 45 degree and hold = 18 seconds. PT-OP-Q Treatments Start: 11/04/20 15:36 Freq: Status: Active Protocol: Document 11/12/20 15:19 (Rec: 11/12/20 16:16 [id number]) Cardio Equipment Bicycle (Upright) Duration (Minutes) 5 Resistance 5 Therapeutic Exercises Supine Exercises leg lift hold Supine Exercise Name hip and knee 90 degrees Side bilateral Reps/Minutes 20 s x 5 Comments cues on PPT first PPT Reps/Minutes 10 x2 Comments cues on glute engagement bridging Reps/Minutes 10 x2 Comments for HEP, cues for PPT first Standing Exercises PPT Side bilateral Reps/Minutes 10 x2 Comments shows good PPT PT-OP-T Assessment and Plan Start: 11/04/20 15:36 Freq: Status: Active Protocol: Document 11/12/20 15:19 (Rec: 11/12/20 16:16 [id number]) Physical Therapy Assessment Goals postural awareness Impairment pt presents significant APT and extend her back through WB position Short Term Goal (STG) pt will show improved awareness of her chronic anterior pelvic tilt position and able to engage posterior pelvic tilt if necessary in WB position to manage her pain. STG Duration 8 weeks trunk endurance Impairment poor core endurance, flexion test= 18 seconds Short Term Goal (STG) pt will show improved core endurance by reaching >30 degrees for flexion endurance test STG Duration 5 weeks Job Molder Goal (LTG) pt will show improved core endurance by reaching >45 degrees for flexion endurance test LTG Duration 10 weeks pain Impairment significant pain with activity / prolonged position 8/10 Short Term Goal (STG) pt will be able to tolerate standing/ walking/ sitting >30 mins without pain >5/10 STG Duration 5 weeks Job Molder Goal (LTG) pt will be able to tolerate standing/ walking/ sitting >30 mins without pain >3/10 LTG Duration 10 weeks Owestry Impairment pt scores 44 on Owestry Short Term Goal (STG) Pt will shows improved overall activity tolerance and community mobility by scoring <30 on Owestry STG Duration 5 weeks Care Home Goal (LTG) Pt will shows improved overall activity tolerance and community mobility by scoring <20 on Owestry LTG Duration 10 weeks Assessment Summary Assessment pt shows good core activation and PPT in supine and standing position. Educated to utilize PPT for prolonged standing activites. Added suipne leg lift hold today. Physical Therapy Plan Frequency and Duration Frequency of Treatment 1x/Week Duration of Treatment 10 weeks Plan of Care Start Date 11/04/20 Plan of Care End Date 01/18/21 Therapeutic Interventions Therapeutic Interventions Home Exercise Program,Joint Mobilizations,Manual Therapy, Neuromuscular Re-education, Patient/Caregiver Education, Self-Care/Home Management,Soft Tissue Mobilization,Taping, Therapeutic Activities, Therapeutic Exercises Modalities Cold Pack/Ice Massage,Electric Stimulation,Hot Packs, Infrared Therapy,Traction- Mechanical,Ultrasound Next Visit Focus/Plan Next Note Type Treatment Note Next Visit Plan retest prone instability postural awareness TA activation LTR posterior tilt bridging
--- NOTE | 2020-11-14 14:38 | PT.OTN ---
Current Diagnoses Other chronic pain (11/14/20) Lumbago with sciatica, right side (11/14/20) Lumbago with sciatica, left side (11/14/20) Physical Therapy Treatment Note PT-OP-A Visit Information Start: 11/04/20 15:36 Freq: Status: Active Protocol: Document 11/14/20 13:45 HH (Rec: 11/14/20 14:38 HH [id number]) Out-Patient Physical Therapy Visit Information Visit Information Visit Type Treatment Note Visit Start Time 13:46 Visit Stop Time 14:30 Total Visit Minutes 44 Visit Number 07/06 Number of CONTRACTS INTERN Visits 0 PT-OP-B Current Condition Start: 11/04/20 15:36 Freq: Status: Active Protocol: Document 11/04/20 15:37 HH (Rec: 11/04/20 16:18 HH [email or web address]) Current Condition History of Current Condition Onset Date Since 6 years old Current Complaints chronic LBP, decreased activity tolerance History of Current Condition Hanane is a 25yo female here for her chronic LBP since she was 6years old. She stated there's no known injury and her pain primarily located at center of lumbar spine and radiates laterally occasionally. Denies any tingling/ numbness/ pain to lower extremity. Pain tends to get worse in any position/ activity > 20-30 mins. However , she finds bending forward tends to relieve her pain. She does have stiffness in the morning and takes approx 1-2 hours to loosen up with mostly flexion based stretches and placing heat pad at low back. Pt has had multiple courses of physical therapy, chiropractic, massage related treatment as well as had extensive medications including anti-inflammatories, narcotics, neuropathic pain moducalators as well as benzodiazepines. However, pt stated it had not been much helpful so far. She had PT in 2018 here at [facility] but was not consistent with her therex and discharged herself as she stated not ready for PT. Pt is currently unemployed and very sedentary at home in [place]. She only walks approx 30 mins / week. Prior Treatments and Tests ?04/19/19 ?L5-S1: Loss of disc signal and slight loss disc height. Mild, diffuse disc bulge. Moderate-sized central disc protrusion. Mild narrowing of the central canal. No neural foraminal narrowing. No neural compression. Pt had multiple PT, chiropractic and massage treatments and didnt help. Pt did not complete PT POC and DC herself early for her most recent PT here at [facility] in 2018. Personal Factors Other Personal Factors That May Effect ADHD Therapy/Recovery Herniated nucleus pulposus, L5 -S1 Uncomplicated opioid dependence failure of previous therapeautic treatment. PT-OP-C Subjective Start: 11/04/20 15:36 Freq: Status: Active Protocol: Document 11/14/20 13:45 HH (Rec: 11/14/20 14:38 HH [id number]) OP-PT Subjective Patient Comments Patient Comments my back tends to get tired/ uncomfortable after sitting > 15-20 mins while im driving. Squeezing my butt seems to help. Patient Reported Progress Improving PT-OP-D Balance Start: 11/04/20 15:36 Freq: Status: Active Protocol: Document 11/04/20 15:37 HH (Rec: 11/04/20 16:18 HH [email or web address]) Balance Tests Single Limb Standing Single Limb- Right 60s, less table, increase weight shift to R Single Limb- Left 60s PT-OP-F Manual Assessment Start: 11/04/20 15:36 Freq: Status: Active Protocol: Document 11/04/20 15:37 HH (Rec: 11/04/20 16:18 HH [email or web address]) Manual Assessments Soft Tissue Assessment Soft Tissue Mobility Assessment mild tenderness to bilateral QL and paraspinals Joint Mobility Assessment Joint Mobility Assessment hypermobile L3 with PA glide, pain reproduced in prone. PT-OP-H Neuro Start: 11/04/20 15:36 Freq: Status: Active Protocol: Document 11/04/20 15:37 HH (Rec: 11/04/20 16:18 HH [email or web address]) Sensation Evaluation Gross Sensation Gross Sensation WNL Deep Tendon Reflex & Clonus Assessment Deep Tendon Reflex Bilateral Patellar Deep Tendon Reflex 0 Absent Bilateral Achilles Deep Tendon Reflex 2+ Normal PT-OP-J Posture/Palpation/Skin Start: 11/04/20 15:36 Freq: Status: Active Protocol: Document 11/04/20 15:37 HH (Rec: 11/04/20 16:18 HH [email or web address]) Posture Evaluation Position Standing T-Spine Posture Increased Kyphosis Pelvis Posture Anteriorly Tilted Weight Distribution Weight Shifted Right PT-OP-K Range of Motion Start: 08/23/21 15:36 Freq: Status: Active Protocol: Document 11/04/20 15:37 HH (Rec: 11/04/20 16:18 HH [email or web address]) Lumbar Spine Range of Motion Lumbar Spine Active Degrees Testing Position Standing Comments toe touch= able to reach floor , slight T/S R rotation lateral flexion to L/R= 17 inches from floor. angulation noted at L3 level extension= shoulder at midfoot = angulation noted at L3 level with significant pain at center PT-OP-L Special Tests Start: 11/04/20 15:36 Freq: Status: Active Protocol: Document 11/04/20 15:37 HH (Rec: 11/04/20 16:18 HH [email or web address]) Special Tests Lumbar Spine Special Tests quadrant test Test Results R>L A-P Shearing Test Results +VE L3 Slump Test Results -ve Vertical Spine Loading Test Results will assess next visit Prone Instability Test Test Results +VE B Comments decreased pain with hip extension with gluteal focus,. Straight Leg Raise Test Results +VE B Comments repetitive SLR reproduce LBP, lack of TA engagement. PT-OP-M Strength Start: 11/04/20 15:36 Freq: Status: Active Protocol: Document 11/04/20 15:37 HH (Rec: 11/04/20 16:18 HH [email or web address]) Trunk Strength Trunk Manual Muscle Testing Core Stabilization endurance test in hooklying position, trunk flex at 45 degree and hold = 18 seconds. PT-OP-Q Treatments Start: 11/04/20 15:36 Freq: Status: Active Protocol: Document 11/14/20 13:45 HH (Rec: 11/14/20 14:38 HH [id number]) Therapeutic Exercises Supine Exercises ball curl Equipment Used red therapy ball Reps/Minutes 10 x2 leg lift hold Supine Exercise Name hip and knee 90 degrees, then hollow hold Side bilateral Reps/Minutes 20 s x 5 then 10s x5 Comments cues on PPT first LTR Resistance on red therapy ball Reps/Minutes 10 x2 PPT Reps/Minutes 10 x2 Comments cues on glute engagement bridging Reps/Minutes 10 x2 Comments for HEP, cues for PPT first TA activation Reps/Minutes 5 sec hold Comments for HEP, cues on abd brace Manual Therapy Treatment Soft Tissue Mobilization lumbar Body Location paraspinals and QL Mobilization Type Myofascial Release,Sustained Pressure,Trigger Point Release Intensity/Depth Moderate Body Position Supine 1 Body Location paralumbars and low thoracis Mobilization Type Myofascial Release,Rolling, Sustained Pressure,Trigger Point Release Intensity/Depth Moderate Body Position Prone Comments tobegin with effluerage PT-OP-T Assessment and Plan Start: 11/04/20 15:36 Freq: Status: Active Protocol: Document 11/14/20 13:45 HH (Rec: 11/14/20 14:38 HH [id number]) Physical Therapy Assessment Goals postural awareness Impairment pt presents significant APT and extend her back through WB position Short Term Goal (STG) pt will show improved awareness of her chronic anterior pelvic tilt position and able to engage posterior pelvic tilt if necessary in WB position to manage her pain. STG Duration 8 weeks trunk endurance Impairment poor core endurance, flexion test= 18 seconds Short Term Goal (STG) pt will show improved core endurance by reaching >30 degrees for flexion endurance test STG Duration 5 weeks Mcc Goal (LTG) pt will show improved core endurance by reaching >45 degrees for flexion endurance test LTG Duration 10 weeks pain Impairment significant pain with activity / prolonged position 8/10 Short Term Goal (STG) pt will be able to tolerate standing/ walking/ sitting >30 mins without pain >5/10 STG Duration 5 weeks Mcc Goal (LTG) pt will be able to tolerate standing/ walking/ sitting >30 mins without pain >3/10 LTG Duration 10 weeks Owestry Impairment pt scores 44 on Owestry Short Term Goal (STG) Pt will shows improved overall activity tolerance and community mobility by scoring <30 on Owestry STG Duration 5 weeks Mcc Goal (LTG) Pt will shows improved overall activity tolerance and community mobility by scoring <20 on Owestry LTG Duration 10 weeks Assessment Summary Assessment Pt continues to show improved core engagement and trunk stability. Added leg curls, LTR on red ball and hollow hold. No discomfort with PPT engagement. Physical Therapy Plan Frequency and Duration Frequency of Treatment 1x/Week Duration of Treatment 10 weeks Plan of Care Start Date 11/04/20 Plan of Care End Date 01/18/21 Therapeutic Interventions Therapeutic Interventions Home Exercise Program,Joint Mobilizations,Manual Therapy, Neuromuscular Re-education, Patient/Caregiver Education, Self-Care/Home Management,Soft Tissue Mobilization,Taping, Therapeutic Activities, Therapeutic Exercises Modalities Cold Pack/Ice Massage,Electric Stimulation,Hot Packs, Infrared Therapy,Traction- Mechanical,Ultrasound Next Visit Focus/Plan Next Note Type Treatment Note Next Visit Plan retest prone instability postural awareness TA activation LTR posterior tilt bridging
--- NOTE | 2020-11-27 14:33 | PT.OTN ---
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 She stated there's no known injury and her pain primarily located at center of lumbar spine and radiates laterally occasionally. Denies any tingling/ numbness/ pain to lower extremity. Pain tends to get worse in any position/ activity > 20-30 mins. However , she finds bending forward tends to relieve her pain. She does have stiffness in the morning and takes approx 1-2 hours to loosen up with mostly flexion based stretches and placing heat pad at low back. Pt has had multiple courses of physical therapy, chiropractic, massage related treatment as well as had extensive medications including anti-inflammatories, narcotics, neuropathic pain moducalators as well as benzodiazepines. However, pt stated it had not been much helpful so far. She had PT in 2018 here at [facility] but was not consistent with her therex and discharged herself as she stated not ready for PT. Pt is currently unemployed and very sedentary at home in [place]. She only walks approx 30 mins / week. Prior Treatments and Tests ?04/19/19 ?L5-S1: Loss of disc signal and slight loss disc height. Mild, diffuse disc bulge. Moderate-sized central disc protrusion. Mild narrowing of the central canal. No neural foraminal narrowing. No neural compression. Pt had multiple PT, chiropractic and massage treatments and didnt help. Pt did not complete PT POC and DC herself early for her most recent PT here at [facility] in 2018. Personal Factors Other Personal Factors That May Effect ADHD Therapy/Recovery Herniated nucleus pulposus, L5 -S1 Uncomplicated opioid dependence failure of previous therapeautic treatment. PT-OP-C Subjective Start: 11/04/20 15:36 Freq: Status: Active Protocol: Document 11/27/20 13:48 HH (Rec: 11/27/20 14:33 HH [id number]) OP-PT Subjective Patient Comments Patient Comments My sleep has gotten better. Lauren been doing all my ex everyday. I could stand 10- 12mins more without hurting but walking is still bothersome. Patient Reported Progress Improving PT-OP-D Balance Start: 11/04/20 15:36 Freq: Status: Active Protocol: Document 11/04/20 15:37 HH (Rec: 11/04/20 16:18 HH [email or web address]) Balance Tests Single Limb Standing Single Limb- Right 60s, less table, increase weight shift to R Single Limb- Left 60s PT-OP-F Manual Assessment Start: 11/04/20 15:36 Freq: Status: Active Protocol: Document 11/04/20 15:37 HH (Rec: 11/04/20 16:18 HH [email or web address]) Manual Assessments Soft Tissue Assessment Soft Tissue Mobility Assessment mild tenderness to bilateral QL and paraspinals Joint Mobility Assessment Joint Mobility Assessment hypermobile L3 with PA glide, pain reproduced in prone. PT-OP-H Neuro Start: 11/04/20 15:36 Freq: Status: Active Protocol: Document 11/04/20 15:37 HH (Rec: 11/04/20 16:18 HH [email or web address]) Sensation Evaluation Gross Sensation Gross Sensation WNL Deep Tendon Reflex & Clonus Assessment Deep Tendon Reflex Bilateral Patellar Deep Tendon Reflex 0 Absent Bilateral Achilles Deep Tendon Reflex 2+ Normal PT-OP-J Posture/Palpation/Skin Start: 11/04/20 15:36 Freq: Status: Active Protocol: Document 11/04/20 15:37 HH (Rec: 11/04/20 16:18 HH [email or web address]) Posture Evaluation Position Standing T-Spine Posture Increased Kyphosis Pelvis Posture Anteriorly Tilted Weight Distribution Weight Shifted Right PT-OP-K Range of Motion Start: 11/04/20 15:36 Freq: Status: Active Protocol: Document 11/04/20 15:37 HH (Rec: 11/04/20 16:18 HH [email or web address]) Lumbar Spine Range of Motion Lumbar Spine Active Degrees Testing Position Standing Comments toe touch= able to reach floor , slight T/S R rotation lateral flexion to L/R= 17 inches from floor. angulation noted at L3 level extension= shoulder at midfoot = angulation noted at L3 level with significant pain at center PT-OP-L Special Tests Start: 11/04/20 15:36 Freq: Status: Active Protocol: Document 11/04/20 15:37 HH (Rec: 11/04/20 16:18 HH [email or web address]) Special Tests Lumbar Spine Special Tests quadrant test Test Results R>L A-P Shearing Test Results +VE L3 Slump Test Results -ve Vertical Spine Loading Test Results will assess next visit Prone Instability Test Test Results +VE B Comments decreased pain with hip extension with gluteal focus,. Straight Leg Raise Test Results +VE B Comments repetitive SLR reproduce LBP, lack of TA engagement. PT-OP-M Strength Start: 11/04/20 15:36 Freq: Status: Active Protocol: Document 11/04/20 15:37 HH (Rec: 11/04/20 16:18 HH [email or web address]) Trunk Strength Trunk Manual Muscle Testing Core Stabilization endurance test in hooklying position, trunk flex at 45 degree and hold = 18 seconds. PT-OP-Q Treatments Start: 11/04/20 15:36 Freq: Status: Active Protocol: Document 11/27/20 13:48 HH (Rec: 11/27/20 14:33 HH [id number]) Cardio Equipment Bicycle (Upright) Duration (Minutes) 5 Resistance 5 Therapeutic Exercises Supine Exercises hollow hold Reps/Minutes 10 sec hold x8 ball curl Equipment Used red therapy ball Reps/Minutes 10 x2 leg lift hold Supine Exercise Name hip and knee 90 degrees, then hollow hold Side bilateral Reps/Minutes 20 s x 5 then 10s x5 Comments cues on PPT first bridging Reps/Minutes 10 x2 Comments for HEP, cues for PPT first Prone Exercises hip extension Prone Exercise Name pillows under hip Reps/Minutes 10 x2 Comments cues to prevent lumbar extension PT-OP-T Assessment and Plan Start: 11/04/20 15:36 Freq: Status: Active Protocol: Document 11/27/20 13:48 (Rec: 11/27/20 14:33 [id number]) Physical Therapy Assessment Rehab Potential Rehabilitation Potential Good Evaluation Complexity Number of Personal Factors/Comorbidities 1-2 Number of Body Systems Impaired 1-2 Clinical Presentation at Evaluation Stable Impairments Impairments Activity Tolerance,Balance, Functional Activities, Functional Mobility,Pain, Posture,ROM,Soft Tissue Mobility,Strength Other Concerns Barriers to Rehabilitation ADHD Herniated nucleus pulposus, L5 -S1 Uncomplicated opioid dependence failure of previous therapeautic treatment. Goals postural awareness Impairment pt presents significant APT and extend her back through WB position Short Term Goal (STG) pt will show improved awareness of her chronic anterior pelvic tilt position and able to engage posterior pelvic tilt if necessary in WB position to manage her pain. STG Duration 8 weeks trunk endurance Impairment poor core endurance, flexion test= 18 seconds Short Term Goal (STG) pt will show improved core endurance by reaching >30 degrees for flexion endurance test STG Duration 5 weeks Fdc Goal (LTG) pt will show improved core endurance by reaching >45 degrees for flexion endurance test LTG Duration 10 weeks pain Impairment significant pain with activity / prolonged position 8/10 Short Term Goal (STG) pt will be able to tolerate standing/ walking/ sitting >30 mins without pain >5/10 STG Duration 5 weeks Fdc Goal (LTG) pt will be able to tolerate standing/ walking/ sitting >30 mins without pain >3/10 LTG Duration 10 weeks Owestry Impairment pt scores 44 on Owestry Short Term Goal (STG) Pt will shows improved overall activity tolerance and community mobility by scoring <30 on Owestry STG Duration 5 weeks Fdc Goal (LTG) Pt will shows improved overall activity tolerance and community mobility by scoring <20 on Owestry LTG Duration 10 weeks Assessment Summary Assessment Pt shows improved trunk stability. Added prone unilateral hip extension to focus on anti lumbar extension tolerance. Pt shows good understanding. Change it to 1x / 2weeks now d/t goo d progress. Physical Therapy Plan Frequency and Duration Frequency of Treatment 1x/Week Duration of Treatment 10 weeks Plan of Care Start Date 11/04/20 Plan of Care End Date 01/18/21 Therapeutic Interventions Therapeutic Interventions Home Exercise Program,Joint Mobilizations,Manual Therapy, Neuromuscular Re-education, Patient/Caregiver Education, Self-Care/Home Management,Soft Tissue Mobilization,Taping, Therapeutic Activities, Therapeutic Exercises Modalities Cold Pack/Ice Massage,Electric Stimulation,Hot Packs, Infrared Therapy,Traction- Mechanical,Ultrasound Next Visit Focus/Plan Next Note Type Treatment Note Next Visit Plan retest prone instability postural awareness TA activation LTR posterior tilt bridging
--- NOTE | 2020-12-12 16:22 | PT.OTN ---
Current Diagnoses Other chronic pain (12/12/20) Lumbago with sciatica, right side (12/12/20) Lumbago with sciatica, left side (12/12/20) Physical Therapy Treatment Note PT-OP-A Visit Information Start: 11/04/20 15:36 Freq: Status: Active Protocol: Document 12/12/20 14:33 HH (Rec: 12/12/20 16:22 HH [id number]) Out-Patient Physical Therapy Visit Information Visit Information Visit Type Treatment Note Visit Start Time 14:35 Visit Stop Time 15:15 Total Visit Minutes 40 Visit Number 09/05 Number of FIELD IRRIGATION WORKER Visits 0 PT-OP-B Current Condition Start: 11/04/20 15:36 Freq: Status: Active Protocol: Document 11/04/20 15:37 HH (Rec: 11/04/20 16:18 HH [email or web address]) Current Condition History of Current Condition Onset Date Since 6 years old Current Complaints chronic LBP, decreased activity tolerance History of Current Condition Hanane is a 25yo female here for her chronic LBP since she was 6years old. She stated there's no known injury and her pain primarily located at center of lumbar spine and radiates laterally occasionally. Denies any tingling/ numbness/ pain to lower extremity. Pain tends to get worse in any position/ activity > 20-30 mins. However , she finds bending forward tends to relieve her pain. She does have stiffness in the morning and takes approx 1-2 hours to loosen up with mostly flexion based stretches and placing heat pad at low back. Pt has had multiple courses of physical therapy, chiropractic, massage related treatment as well as had extensive medications including anti-inflammatories, narcotics, neuropathic pain moducalators as well as benzodiazepines. However, pt stated it had not been much helpful so far. She had PT in 2018 here at [facility] but was not consistent with her therex and discharged herself as she stated not ready for PT. Pt is currently unemployed and very sedentary at home in [place]. She only walks approx 30 mins / week. Prior Treatments and Tests ?04/19/19 ?L5-S1: Loss of disc signal and slight loss disc height. Mild, diffuse disc bulge. Moderate-sized central disc protrusion. Mild narrowing of the central canal. No neural foraminal narrowing. No neural compression. Pt had multiple PT, chiropractic and massage treatments and didnt help. Pt did not complete PT POC and DC herself early for her most recent PT here at [facility] in 2018. Personal Factors Other Personal Factors That May Effect ADHD Therapy/Recovery Herniated nucleus pulposus, L5 -S1 Uncomplicated opioid dependence failure of previous therapeautic treatment. PT-OP-C Subjective Start: 11/04/20 15:36 Freq: Status: Active Protocol: Document 12/12/20 14:33 HH (Rec: 12/12/20 16:22 HH [id number]) OP-PT Subjective Patient Comments Patient Comments My back is hurting more since last week i think because Lauren been sleeping at my grandpa house and the mattress is very uncomfortable. But the stretches are helpful. Lauren been able to sit longer. Patient Reported Progress Improving PT-OP-D Balance Start: 11/04/20 15:36 Freq: Status: Active Protocol: Document 11/04/20 15:37 HH (Rec: 11/04/20 16:18 HH [email or web address]) Balance Tests Single Limb Standing Single Limb- Right 60s, less table, increase weight shift to R Single Limb- Left 60s PT-OP-F Manual Assessment Start: 11/04/20 15:36 Freq: Status: Active Protocol: Document 11/04/20 15:37 HH (Rec: 11/04/20 16:18 HH [email or web address]) Manual Assessments Soft Tissue Assessment Soft Tissue Mobility Assessment mild tenderness to bilateral QL and paraspinals Joint Mobility Assessment Joint Mobility Assessment hypermobile L3 with PA glide, pain reproduced in prone. PT-OP-H Neuro Start: 11/04/20 15:36 Freq: Status: Active Protocol: Document 11/04/20 15:37 HH (Rec: 11/04/20 16:18 HH [email or web address]) Sensation Evaluation Gross Sensation Gross Sensation WNL Deep Tendon Reflex & Clonus Assessment Deep Tendon Reflex Bilateral Patellar Deep Tendon Reflex 0 Absent Bilateral Achilles Deep Tendon Reflex 2+ Normal PT-OP-J Posture/Palpation/Skin Start: 11/04/20 15:36 Freq: Status: Active Protocol: Document 11/04/20 15:37 HH (Rec: 11/04/20 16:18 HH [email or web address]) Posture Evaluation Position Standing T-Spine Posture Increased Kyphosis Pelvis Posture Anteriorly Tilted Weight Distribution Weight Shifted Right PT-OP-K Range of Motion Start: 11/04/20 15:36 Freq: Status: Active Protocol: Document 11/04/20 15:37 HH (Rec: 11/04/20 16:18 HH [email or web address]) Lumbar Spine Range of Motion Lumbar Spine Active Degrees Testing Position Standing Comments toe touch= able to reach floor , slight T/S R rotation lateral flexion to L/R= 17 inches from floor. angulation noted at L3 level extension= shoulder at midfoot = angulation noted at L3 level with significant pain at center PT-OP-L Special Tests Start: 11/04/20 15:36 Freq: Status: Active Protocol: Document 11/04/20 15:37 HH (Rec: 11/04/20 16:18 HH [email or web address]) Special Tests Lumbar Spine Special Tests quadrant test Test Results R>L A-P Shearing Test Results +VE L3 Slump Test Results -ve Vertical Spine Loading Test Results will assess next visit Prone Instability Test Test Results +VE B Comments decreased pain with hip extension with gluteal focus,. Straight Leg Raise Test Results +VE B Comments repetitive SLR reproduce LBP, lack of TA engagement. PT-OP-M Strength Start: 11/04/20 15:36 Freq: Status: Active Protocol: Document 11/04/20 15:37 HH (Rec: 11/04/20 16:18 HH [email or web address]) Trunk Strength Trunk Manual Muscle Testing Core Stabilization endurance test in hooklying position, trunk flex at 45 degree and hold = 18 seconds. PT-OP-Q Treatments Start: 11/04/20 15:36 Freq: Status: Active Protocol: Document 12/12/20 14:33 HH (Rec: 12/12/20 16:22 HH [id number]) Cardio Equipment Bicycle (Upright) Duration (Minutes) 5 Resistance 5 Therapeutic Exercises Supine Exercises hollow hold Reps/Minutes 10 sec hold x8 bridging Reps/Minutes 10 x2 Comments for HEP, cues for PPT first Prone Exercises cat camel Prone Exercise Name with cervical fleixon and extension Reps/Minutes 10x2 hip extension Prone Exercise Name elbows on table Reps/Minutes 10 x2 Comments cues to prevent lumbar extension Standing Exercises PPT Side bilateral Reps/Minutes 10 x2 Comments shows good PPT Manual Therapy Treatment Soft Tissue Mobilization lumbar Body Location paraspinals and QL Mobilization Type Myofascial Release,Sustained Pressure,Trigger Point Release Intensity/Depth Moderate Body Position Supine PT-OP-T Assessment and Plan Start: 11/04/20 15:36 Freq: Status: Active Protocol: Document 12/12/20 14:33 HH (Rec: 12/12/20 16:22 HH [id number]) Physical Therapy Assessment Goals postural awareness Impairment pt presents significant APT and extend her back through WB position Short Term Goal (STG) pt will show improved awareness of her chronic anterior pelvic tilt position and able to engage posterior pelvic tilt if necessary in WB position to manage her pain. STG Duration 8 weeks trunk endurance Impairment poor core endurance, flexion test= 18 seconds Short Term Goal (STG) pt will show improved core endurance by reaching >30 degrees for flexion endurance test STG Duration 5 weeks [facility] Goal (LTG) pt will show improved core endurance by reaching >45 degrees for flexion endurance test LTG Duration 10 weeks pain Impairment significant pain with activity / prolonged position 8/10 Short Term Goal (STG) pt will be able to tolerate standing/ walking/ sitting >30 mins without pain >5/10 STG Duration 5 weeks Sound Effects Supervisor Goal (LTG) pt will be able to tolerate standing/ walking/ sitting >30 mins without pain >3/10 LTG Duration 10 weeks Owestry Impairment pt scores 44 on Owestry Short Term Goal (STG) Pt will shows improved overall activity tolerance and community mobility by scoring <30 on Owestry STG Duration 5 weeks [facility] Goal (LTG) Pt will shows improved overall activity tolerance and community mobility by scoring <20 on Owestry LTG Duration 10 weeks Assessment Summary Assessment pt reports increased soreness/ pain since last week since staying at her [facility] house 7days ago possibly d/t her uncomfortable mattress as she stated. She found stretches very helpful and she can tolerate sitting and standing for longer time at this point. Added catcamel and hip extension to HEP. Will progress more WB position for next 2 visits. Physical Therapy Plan Frequency and Duration Frequency of Treatment 1x/Week Duration of Treatment 10 weeks Plan of Care Start Date 11/04/20 Plan of Care End Date 01/18/21 Therapeutic Interventions Therapeutic Interventions Home Exercise Program,Joint Mobilizations,Manual Therapy, Neuromuscular Re-education, Patient/Caregiver Education, Self-Care/Home Management,Soft Tissue Mobilization,Taping, Therapeutic Activities, Therapeutic Exercises Modalities Cold Pack/Ice Massage,Electric Stimulation,Hot Packs, Infrared Therapy,Traction- Mechanical,Ultrasound Next Visit Focus/Plan Next Note Type Treatment Note Next Visit Plan retest prone instability postural awareness TA activation LTR posterior tilt bridging
--- NOTE | 2020-12-26 16:25 | PT.OTN ---
Current Diagnoses Other chronic pain (12/26/20) Lumbago with sciatica, right side (12/26/20) Lumbago with sciatica, left side (12/26/20) Physical Therapy Treatment Note PT-OP-A Visit Information Start: 11/04/20 15:36 Freq: Status: Active Protocol: Document 12/26/20 14:31 HH (Rec: 12/26/20 16:24 HH [id number]) Out-Patient Physical Therapy Visit Information Visit Information Visit Type Treatment Note Visit Start Time 14:32 Visit Stop Time 15:15 Total Visit Minutes 43 Visit Number 10/05 Number of PROFESSOR OF PSYCHIATRY Visits 0 PT-OP-B Current Condition Start: 11/04/20 15:36 Freq: Status: Active Protocol: Document 11/04/20 15:37 HH (Rec: 11/04/20 16:18 HH [email or web address]) Current Condition History of Current Condition Onset Date Since 6 years old Current Complaints chronic LBP, decreased activity tolerance History of Current Condition Hanane is a 25yo female here for her chronic LBP since she was 6years old. She stated there's no known injury and her pain primarily located at center of lumbar spine and radiates laterally occasionally. Denies any tingling/ numbness/ pain to lower extremity. Pain tends to get worse in any position/ activity > 20-30 mins. However , she finds bending forward tends to relieve her pain. She does have stiffness in the morning and takes approx 1-2 hours to loosen up with mostly flexion based stretches and placing heat pad at low back. Pt has had multiple courses of physical therapy, chiropractic, massage related treatment as well as had extensive medications including anti-inflammatories, narcotics, neuropathic pain moducalators as well as benzodiazepines. However, pt stated it had not been much helpful so far. She had PT in 2018 here at [facility] but was not consistent with her therex and discharged herself as she stated not ready for PT. Pt is currently unemployed and very sedentary at home in [place]. She only walks approx 30 mins / week. Prior Treatments and Tests ?04/19/19 ?L5-S1: Loss of disc signal and slight loss disc height. Mild, diffuse disc bulge. Moderate-sized central disc protrusion. Mild narrowing of the central canal. No neural foraminal narrowing. No neural compression. Pt had multiple PT, chiropractic and massage treatments and didnt help. Pt did not complete PT POC and DC herself early for her most recent PT here at [facility] in 2018. Personal Factors Other Personal Factors That May Effect ADHD Therapy/Recovery Herniated nucleus pulposus, L5 -S1 Uncomplicated opioid dependence failure of previous therapeautic treatment. PT-OP-C Subjective Start: 11/04/20 15:36 Freq: Status: Active Protocol: Document 12/26/20 14:31 HH (Rec: 12/26/20 16:24 HH [id number]) OP-PT Subjective Patient Comments Patient Comments My back is getting worse i think its because i havent done any HEP at all. Patient Reported Progress Worse PT-OP-D Balance Start: 11/04/20 15:36 Freq: Status: Active Protocol: Document 11/04/20 15:37 HH (Rec: 11/04/20 16:18 HH [email or web address]) Balance Tests Single Limb Standing Single Limb- Right 60s, less table, increase weight shift to R Single Limb- Left 60s PT-OP-F Manual Assessment Start: 11/04/20 15:36 Freq: Status: Active Protocol: Document 11/04/20 15:37 HH (Rec: 11/04/20 16:18 HH [email or web address]) Manual Assessments Soft Tissue Assessment Soft Tissue Mobility Assessment mild tenderness to bilateral QL and paraspinals Joint Mobility Assessment Joint Mobility Assessment hypermobile L3 with PA glide, pain reproduced in prone. PT-OP-H Neuro Start: 11/04/20 15:36 Freq: Status: Active Protocol: Document 11/04/20 15:37 HH (Rec: 11/04/20 16:18 HH [email or web address]) Sensation Evaluation Gross Sensation Gross Sensation WNL Deep Tendon Reflex & Clonus Assessment Deep Tendon Reflex Bilateral Patellar Deep Tendon Reflex 0 Absent Bilateral Achilles Deep Tendon Reflex 2+ Normal PT-OP-J Posture/Palpation/Skin Start: 11/04/20 15:36 Freq: Status: Active Protocol: Document 11/04/20 15:37 HH (Rec: 11/04/20 16:18 HH [email or web address]) Posture Evaluation Position Standing T-Spine Posture Increased Kyphosis Pelvis Posture Anteriorly Tilted Weight Distribution Weight Shifted Right PT-OP-K Range of Motion Start: 11/04/20 15:36 Freq: Status: Active Protocol: Document 11/04/20 15:37 HH (Rec: 11/04/20 16:18 [email or web address]) Lumbar Spine Range of Motion Lumbar Spine Active Degrees Testing Position Standing Comments toe touch= able to reach floor , slight T/S R rotation lateral flexion to L/R= 17 inches from floor. angulation noted at L3 level extension= shoulder at midfoot = angulation noted at L3 level with significant pain at center PT-OP-L Special Tests Start: 11/04/20 15:36 Freq: Status: Active Protocol: Document 11/04/20 15:37 HH (Rec: 11/04/20 16:18 [email or web address]) Special Tests Lumbar Spine Special Tests quadrant test Test Results R>L A-P Shearing Test Results +VE L3 Slump Test Results -ve Vertical Spine Loading Test Results will assess next visit Prone Instability Test Test Results +VE B Comments decreased pain with hip extension with gluteal focus,. Straight Leg Raise Test Results +VE B Comments repetitive SLR reproduce LBP, lack of TA engagement. PT-OP-M Strength Start: 11/04/20 15:36 Freq: Status: Active Protocol: Document 11/04/20 15:37 HH (Rec: 11/04/20 16:18 [email or web address]) Trunk Strength Trunk Manual Muscle Testing Core Stabilization endurance test in hooklying position, trunk flex at 45 degree and hold = 18 seconds. PT-OP-Q Treatments Start: 11/04/20 15:36 Freq: Status: Active Protocol: Document 12/26/20 14:31 HH (Rec: 12/26/20 16:24 [id number]) Therapeutic Exercises Supine Exercises hip traction Supine Exercise Name for lumbar traction (long axis ) Reps/Minutes 10 s hold x5 Comments recommended to have partner to assist hollow hold Reps/Minutes 10 sec hold x8 Comments reports of pain today Manual Therapy Treatment Soft Tissue Mobilization lumbar Body Location paraspinals and QL Mobilization Type Myofascial Release,Sustained Pressure,Trigger Point Release Intensity/Depth Moderate Body Position Supine 1 Body Location paralumbars and low thoracis Mobilization Type Myofascial Release,Rolling, Sustained Pressure,Trigger Point Release Intensity/Depth Moderate Body Position Prone Comments tobegin with effluerage Manual Traction hip Details long axis traction Body Position Supine Comments unilateral PT-OP-T Assessment and Plan Start: 11/04/20 15:36 Freq: Status: Active Protocol: Document 12/26/20 14:31 (Rec: 12/26/20 16:24 [id number]) Physical Therapy Assessment Goals postural awareness Impairment pt presents significant APT and extend her back through WB position Short Term Goal (STG) pt will show improved awareness of her chronic anterior pelvic tilt position and able to engage posterior pelvic tilt if necessary in WB position to manage her pain. STG Duration 8 weeks trunk endurance Impairment poor core endurance, flexion test= 18 seconds Short Term Goal (STG) pt will show improved core endurance by reaching >30 degrees for flexion endurance test STG Duration 5 weeks Dough Mixer Helper Goal (LTG) pt will show improved core endurance by reaching >45 degrees for flexion endurance test LTG Duration 10 weeks pain Impairment significant pain with activity / prolonged position 8/10 Short Term Goal (STG) pt will be able to tolerate standing/ walking/ sitting >30 mins without pain >5/10 STG Duration 5 weeks Skilled Nursing Goal (LTG) pt will be able to tolerate standing/ walking/ sitting >30 mins without pain >3/10 LTG Duration 10 weeks Owestry Impairment pt scores 44 on Owestry Short Term Goal (STG) Pt will shows improved overall activity tolerance and community mobility by scoring <30 on Owestry STG Duration 5 weeks Dough Mixer Helper Goal (LTG) Pt will shows improved overall activity tolerance and community mobility by scoring <20 on Owestry LTG Duration 10 weeks Assessment Summary Assessment pt reports increased back pain for the past two weeks since she hasnt been doing any HEP. Spent time educating her to be consistent with lumbar flexion mobility ex and core stability ex. Pt expresses understanding. Physical Therapy Plan Frequency and Duration Frequency of Treatment 1x/Week Duration of Treatment 10 weeks Plan of Care Start Date 11/04/20 Plan of Care End Date 01/18/21 Therapeutic Interventions Therapeutic Interventions Home Exercise Program,Joint Mobilizations,Manual Therapy, Neuromuscular Re-education, Patient/Caregiver Education, Self-Care/Home Management,Soft Tissue Mobilization,Taping, Therapeutic Activities, Therapeutic Exercises Modalities Cold Pack/Ice Massage,Electric Stimulation,Hot Packs, Infrared Therapy,Traction- Mechanical,Ultrasound Next Visit Focus/Plan Next Note Type Treatment Note Next Visit Plan retest prone instability postural awareness TA activation LTR posterior tilt bridging
--- NOTE | 2021-01-21 14:11 | PT.OPDS ---
Current Diagnoses Other chronic pain (12/26/20) Lumbago with sciatica, right side (12/26/20) Lumbago with sciatica, left side (12/26/20) Visit Care Team Role Provider Type Fidel Valero MD Attending Provider Non-Staff Family Provider Primary Care Provider Referring Provider Specialty: Family Practice Address: [address] [place] [address], [address], [place], [address] Email: Visit Number Visit Number 10/05 Discharge Summary PT-OP-T Assessment and Plan Start: 11/04/20 15:36 Freq: Status: Active Protocol: Document 01/21/21 14:09 (Rec: 01/21/21 14:11 [email or web address]) Physical Therapy Plan Discharge Physical Therapy Discharge Reasons No Longer Attending PT Discharge Comments pt is no longer attending PT. Per EMR, she shows progress when she is compliant to HEP but symptoms came back when she stopped. I did spent time educating her the importance of core stability. DC from PT today
== END 2021-01-22 14:01 ==
LOC: PHYS 14:30
PROVIDERS: Family Provider Family Medicine; PCP Family Medicine; Referring Provider Family Medicine; Visit Provider Family Medicine
DX: M54.42 Lumbago with sciatica, left side (principal); M54.41 Lumbago with sciatica, right side; G89.29 Other chronic pain
CPT/HCPCS: 97110; 97140; 97162; 97535

== ENCOUNTER → 2021-03-12 13:44 | Outpatient (CLI) | payer OTHER, MEDICAID, SELFPAY ==
[2021-03-12 14:31] LABS: COVID19 -Nasal RAPID Negative (Negative)
== END ==
PROVIDERS: Family Provider Family Medicine; PCP Family Medicine; Referring Provider Nurse Practitioner Family; Visit Provider Nurse Practitioner Family
DX: R51.9 Headache, unspecified (principal); R09.89 Other specified symptoms and signs involving the circulatory and respiratory systems; J02.9 Acute pharyngitis, unspecified; R19.7 Diarrhea, unspecified
CPT/HCPCS: 87635